=== PATIENT | female | born 1930 | race Caucasian/White ===

== ENCOUNTER 2017-07-18 14:48 | Observation (INO) | payer MEDICARE, BC ==
--- NOTE | 2017-07-18 15:00 | EDM.PDOC ---
ED HPI GENERAL MEDICAL PROBLEM - General Chief Complaint: Respiratory Problem Stated Complaint: FELL Time Seen by Provider: 07/18/17 15:00 Source of Information: Reports: Patient, Family, RN, RN Notes Reviewed History Limitations: Reports: No Limitations - History of Present Illness INITIAL COMMENTS - FREE TEXT/NARRATIVE: Arrives from home by POV with c/o of left chest wall/rib pain sustained today when pt tripping and struck a door knob with her chest. She was discharged from inpt. status from [facility] about a week ago where she was admitted for a COPD exacerbation. Pt reports feeling very weak since being home, and has been requiring a lot of assistance from her family. She is home supplemental oxygen dependent at 2.5L/min, but still feels short of breath. Admits to thick sputum production. Denies edema, fever, chills, N/V, or any other injury. 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 Treatments, Other Medication(s), Oxygen Left Lower Thoracic Pain Score (Numeric/FACES): 5 - Related Data Allergies Allergy/AdvReac Type Severity Reaction Status Date / Time No Known Allergies Allergy Verified 07/18/17 15:09 Home Meds: Home Meds Budesonide [Pulmicort] 2 ml INH ASDIRECTED 07/18/17 [History] DULoxetine [Cymbalta] 30 mg PO DAILY 07/18/17 [History] Formoterol [Perforomist] 2 ml INH ASDIRECTED 07/18/17 [History] amLODIPine Besylate [Amlodipine Besylate] 5 mg PO DAILY 07/18/17 [History] Past Medical History HEENT History: Reports: Impaired Vision Cardiovascular History: Reports: Hypertension Respiratory History: Reports: COPD, SOB, TB Gastrointestinal History: Reports: Hiatal Hernia Genitourinary History: Reports: UTI, Recurrent Musculoskeletal History: Reports: Back Pain, Chronic, Fracture (multiple ribs, T2 thoracic compression fracture), Osteoarthritis, Osteoporosis Psychiatric History: Reports: Anxiety, Depression Social & Family History - Family History Family Medical History: Noncontributory - Tobacco Use Smoking Status *Q: Former Smoker - Living Situation & Occupation Living situation: Reports: Alone Occupation: Retired ED ROS GENERAL - Review of Systems Review Of Systems: ROS reveals no pertinent complaints other than HPI. ED EXAM, GENERAL - Physical Exam Exam: See Below Exam Limited By: No Limitations General Appearance: Alert, Other (frail elderly female, uncomfortable but non- toxic appearing) Eye Exam: Bilateral Eye: Normal Inspection Ears: Normal External Exam, Hearing Grossly Normal Nose: Normal Inspection, Normal Mucosa, No Blood Throat/Mouth: Normal Inspection, Normal Lips, Normal Teeth, Normal Gums, Normal Oropharynx, Normal Voice, No Airway Compromise Head: Atraumatic, Normocephalic Neck: Normal Inspection, Supple, Non-Tender, Full Range of Motion. No: Lymphadenopathy (L), Lymphadenopathy (R) Respiratory/Chest: No Respiratory Distress, No Accessory Muscle Use, Decreased Breath Sounds, Crackles, Rhonchi (bibasilar), Wheezing, Splinting (at left chest ), Prolonged Expiration, Other (acutely tender to palpation at left lower anterior and lateral chest wall w/out alvaro crepitus, visible bruising or swelling, skin is intact) Cardiovascular: Regular Rate, Rhythm, No Edema, No JVD, No Murmur GI/Abdominal: Normal Bowel Sounds, Soft, Non-Tender, No Distention, Pelvis Stable. No: Guarding, Rigid, Rebound (Female) Exam: Deferred Rectal (Female) Exam: Deferred Back Exam: Other (chronically increased thoracic kyphosis). No: CVA Tenderness (L), CVA Tenderness (R) Extremities: Normal Inspection, Normal Range of Motion, Non-Tender, Normal Capillary Refill, No Pedal Edema Neurological: Alert, Oriented, CN II-XII Intact, Normal Cognition, No Motor/ Sensory Deficits, Other (generalized weakness) Psychiatric: Normal Mood Skin Exam: Warm, Dry, Intact, Normal Color, No Rash Course - Vital Signs Last Recorded V/S: Last Vital Signs Temp 37.1 C 07/18/17 15:04 Pulse 115 H 07/18/17 15:04 Resp 20 07/18/17 15:04 BP 132/73 07/18/17 15:04 Pulse Ox 94 L 07/18/17 15:04 - Orders/Labs/Meds Orders: Active Orders 24 hr Category Date Time Status Peripheral IV Care [RC] . DIRECTED Care 07/18/17 16:35 Active RT Aerosol Therapy [RC] ASDIRECTED Care 07/18/17 16:29 Active CULTURE BLOOD [BC] Stat Lab 07/18/17 16:35 Ordered CULTURE BLOOD [BC] Stat Lab 07/18/17 16:35 Ordered LACTIC ACID [CHEM] Stat Lab 07/18/17 16:35 Ordered UA W/MICROSCOPIC [URIN] Stat Lab 07/18/17 15:17 Ordered Sodium Chloride 0.9% [Normal Saline] 1,000 ml Med 07/18/17 16:45 Active IV ASDIRECTED Sodium Chloride 0.9% [Saline Flush] Med 07/18/17 16:35 Active 10 ml FLUSH ASDIRECTED PRN Blood Culture x2 Reflex Set [OM.PC] Stat Oth 07/18/17 16:35 Ordered Peripheral IV Insertion Adult [OM.PC] Stat Oth 07/18/17 16:35 Ordered Medication Orders Sodium Chloride (Normal Saline) 1,000 mls @ 250 mls/hr IV ASDIRECTED JESSICA Sodium Chloride (Saline Flush) 10 ml FLUSH ASDIRECTED PRN PRN Reason: Keep Vein Open Labs: Laboratory Tests 07/18/17 07/18/17 Range/Units 15:30 15:30 WBC 11.9 H (5.0-10.0) 10^3/uL RBC 3.41 L (4.2-5.4) 10^6/uL Hgb 11.3 L (12.0-16.0) g/dL Hct 32.3 L (37.0-47.0) % MCV 94.7 (80-100) fL MCH 33.1 (27.0-34.0) pg MCHC 35.0 (33.0-35.0) g/dL Plt Count 352 (150-450) 10^3/uL Neut % (Auto) (42.2-75.2) % Add Manual Diff Yes Neutrophils % (Manual) 84 H (42-75) % Band Neutrophils % 2 % Lymphocytes % (Manual) 10 L (20-50) % Monocytes % (Manual) 3 (2-8) % Eosinophils % (Manual) 1 (1-3) % Platelet Estimate Adequate Giant Platelets Few Sodium 134 L (135-145) mmol/L Potassium 3.5 L (3.6-5.0) mmol/L Chloride 100 L (101-111) mmol/L Carbon Dioxide 30.0 (21.0-31.0) mmol/L Anion Gap 7.5 BUN 14 (7-18) mg/dL Creatinine 0.7 (0.6-1.3) mg/dL Est Cr Clr Drug Dosing 45.63 mL/min Estimated GFR (MDRD) > 60 BUN/Creatinine Ratio 20.00 Glucose 144 H (74-105) mg/dL Calcium 8.5 (8.4-10.2) mg/dl Total Bilirubin 0.6 (0.2-1.0) mg/dL AST 16 (10-42) IU/L ALT 13 (10-60) IU/L Alkaline Phosphatase 62 (42-121) IU/L Total Protein 6.4 L (6.7-8.2) g/dl Albumin 2.9 L (3.2-5.5) g/dl Globulin 3.5 Albumin/Globulin Ratio 0.83 Meds: Medications Generic Name Dose Route Start Last Admin Trade Name Freq PRN Reason Stop Dose Admin Sodium Chloride 1,000 mls @ 250 mls/hr 07/18/17 16:45 Normal Saline IV ASDIRECTED JESSICA Sodium Chloride 10 ml 07/18/17 16:35 Saline Flush FLUSH ASDIRECTED PRN Keep Vein Open Discontinued Medications Generic Name Dose Route Start Last Admin Trade Name Freq PRN Reason Stop Dose Admin Acetaminophen/Codeine Phosphate 1 tab 07/18/17 16:36 Tylenol With Codeine No.3 300mg/30mg PO 07/18/17 16:37 ONETIME ONE Albuterol/Ipratropium 3 ml 07/18/17 16:28 Duoneb 3.0-0.5 Mg/3 Ml NEB 07/18/17 16:29 ONETIME ONE Ceftriaxone Sodium 1 gm 07/18/17 16:29 Rocephin IVPUSH 07/18/17 16:30 ONETIME ONE Methylprednisolone Sodium Succinate 80 mg 07/18/17 16:28 Solu-Medrol IVPUSH 07/18/17 16:29 ONETIME ONE - Radiology Interpretation Free Text/Narrative:: CT chest: Compression fracture T2. Kyphotic spine. 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 Cholelithiasis. No rib fractures, effusion or pneumothorax. See rad report. Departure - Departure Time of Disposition: 16:47 (admitted to Dr. Dalmi) Disposition: Refer to Observation Condition: Serious Clinical Impression: Acute exacerbation of COPD with asthma, Supplemental oxygen dependent, Atelectasis of both lungs, Generalized weakness Contusion of left chest wall Qualifiers: Encounter type: initial encounter Qualified Code(s): S20.212A - Contusion of left front wall of thorax, initial encounter - Discharge Information Forms: ED Department Discharge - My Orders Last 24 Hours: My Active Orders 07/18/17 15:17 UA W/MICROSCOPIC [URIN] Stat 07/18/17 16:29 RT Aerosol Therapy [RC] ASDIRECTED 07/18/17 16:35 Peripheral IV Care [RC] . DIRECTED CULTURE BLOOD [BC] Stat CULTURE BLOOD [BC] Stat LACTIC ACID [CHEM] Stat Sodium Chloride 0.9% [Saline Flush] 10 ml FLUSH ASDIRECTED PRN Blood Culture x2 Reflex Set [OM.PC] Stat Peripheral IV Insertion Adult [OM.PC] Stat 07/18/17 16:45 Sodium Chloride 0.9% [Normal Saline] 1,000 ml IV ASDIRECTED - Assessment/Plan Last 24 Hours: My Active Orders 07/18/17 15:17 UA W/MICROSCOPIC [URIN] Stat 07/18/17 16:29 RT Aerosol Therapy [RC] ASDIRECTED 07/18/17 16:35 Peripheral IV Care [RC] . DIRECTED CULTURE BLOOD [BC] Stat CULTURE BLOOD [BC] Stat LACTIC ACID [CHEM] Stat Sodium Chloride 0.9% [Saline Flush] 10 ml FLUSH ASDIRECTED PRN Blood Culture x2 Reflex Set [OM.PC] Stat Peripheral IV Insertion Adult [OM.PC] Stat 07/18/17 16:45 Sodium Chloride 0.9% [Normal Saline] 1,000 ml IV ASDIRECTED
[2017-07-18 15:56] LABS: CHLORIDE,CL 100 mmol/L (101-111); SODIUM,NA 134 mmol/L (135-145)
--- NOTE | 2017-07-18 16:02 | CT ---
Clinical history: 87-year-old hypertensive female with COPD who fell (slipped on linoleum) injuring l eft chest, anteriorly. Scan technique: Volume acquisition of data unenhanced CT scan of the chest bony thorax, lungs and med iastinum) obtained while the patient was lying supine on the Siemens multi slice CT scanner [place], [place]. All data archived in the PACS system for storage, reformattin g and study. Interpretation: Abnormal. 1. Greater than 50% compression fracture T2 vertebral body (age indeterminate without comparison film s immediately available). 2. Dorsal lumbar scoliosis and severe kyphosis of the thoracic spine with signs of chronic multilevel lower thoracic/upper lumbar disc disease and hypertrophic arthritis (spurs) at the thoracolumbar kirsty cture. No other fracture or dislocation dorsal spine. 3. Extensive bullous disease primarily affecting upper lungs bilaterally and asymmetric elevation lef t hemidiaphragm. 4. Bibasilar atelectasis. No lung mass, hilar lymphadenopathy or focal lobar pneumonia. 5. No left rib fractures, underlying lung contusion or signs of pneumothorax. 6. Normal cardiac silhouette (coronary artery calcifications without cephalization of vascular flow o r alveolar edema. Calcifications normal caliber ectatic thoracic aorta. No aneurysm or dissection. 7. Tiny gallstones but unenhanced liver, stomach, spleen, pancreas and adrenal glands unremarkable. CONCLUSION: Compression fracture T2. Kyphotic spine. Extensive bullous emphysematous disease of the l nick. Cholelithiasis. No rib fractures, effusion or pneumothorax.
[2017-07-18] MEDS ORDERED: methylPREDNISolone Sodium Succinate 125 MG/2 ML SDV IVPUSH ONE (16:28)
[2017-07-18] MEDS ORDERED: Albuterol/Ipratropium 3.0-0.5 MG/3 ML Neb Soln NEB ONE (16:28)
[2017-07-18] MEDS ORDERED: cefTRIAXone 1 GM Vial IVPUSH ONE (16:29)
[2017-07-18] MEDS ORDERED: Sodium Chloride 0.9% 10 ML Syringe FLUSH PRN ×2 (16:35→18:06)
[2017-07-18] MEDS ORDERED: Acetaminophen/Codeine 300-30 MG Tab PO ONE (16:36)
[2017-07-18] MEDS ORDERED: Sodium Chloride 0.9% 1,000 ML IV SCH (16:45)
[2017-07-18] MEDS ORDERED: Albuterol/Ipratropium 3.0-0.5 MG/3 ML Neb Soln NEB PRN (17:28)
[2017-07-18] MEDS ORDERED: Non-Formulary Medication 1 Each (Formoterol [Perforomist] 2 ML) INH SCH ×2 (17:30→21:00)
[2017-07-18] MEDS ORDERED: Zolpidem 5 MG Tab PO PRN (18:06)
--- NOTE | 2017-07-18 18:13 | PCM.HP ---
H&P History of Present Illness - General Date of Service: 07/18/17 Admit Problem/Dx: Admission Diagnosis/Problem Admission Diagnosis/Problem Chest pain Source of Information: Patient, Provider (er) - History of Present Illness Initial Comments - Free Text/Narative: The patient is an 87-year-old lady with a history of COPD, hypertension, depression with anxiety. Living at home independently. She was recently hospitalized and discharged on the beginning of June from [place] when she was treated for COPD. The patient was at home when she slipped on the linoleum and fell into a doorknob. She injured the left side of the chest. She is complaining of moderate to severe pain worse with touching, deep breath. The pain is sharp since the accident. She did not pass out she did not hit her head. She has a history of COPD and home oxygen dependent using about 2.5 L/m oxygen constantly. He has chronic shortness of breath which was not first lately. There was no fever or chills. No abdominal pain, no urinary burning. She came into the emergency room because of the pain since the accident. Left Lower Thoracic Pain Score (Numeric/FACES): 5 - Related Data Allergies/Adverse Reactions: Allergies Allergy/AdvReac Type Severity Reaction Status Date / Time No Known Allergies Allergy Verified 07/18/17 15:09 Home Medications: Home Meds Acetaminophen [Tylenol] 650 mg PO Q6H PRN 07/18/17 [History] Albuterol/Ipratropium [DuoNeb 3.0-0.5 MG/3 ML] 3 ml INH DAILY 07/18/17 [History] Budesonide [Pulmicort] 2 ml INH ASDIRECTED 07/18/17 [History] Cetirizine HCl [Zyrtec] 10 mg PO DAILY 07/18/17 [History] DULoxetine [Cymbalta] 30 mg PO DAILY 07/18/17 [History] Formoterol [Perforomist] 2 ml INH ASDIRECTED 07/18/17 [History] Lutein/Minerals/Vit A,C & E [Ocuvite] 1 tab PO DAILY 07/18/17 [History] amLODIPine Besylate [Amlodipine Besylate] 5 mg PO DAILY 07/18/17 [History] Past Medical History HEENT History: Reports: Impaired Vision Cardiovascular History: Reports: Hypertension Respiratory History: Reports: COPD, SOB, TB Gastrointestinal History: Reports: Hiatal Hernia Genitourinary History: Reports: UTI, Recurrent RN TRANSITION History: Reports: Musculoskeletal History: Reports: Back Pain, Chronic, Fracture (multiple ribs, T2 thoracic compression fracture), Osteoarthritis, Osteoporosis Psychiatric History: Reports: Anxiety, Depression Social & Family History - Family History Family Medical History: Noncontributory - Tobacco Use Smoking Status *Q: Former Smoker Used Tobacco, but Quit: Yes Month/Year Tobacco Last Used: ? Second Hand Smoke Exposure: No - Caffeine Use Caffeine Use: Reports: Coffee, Soda - Recreational Drug Use Recreational Drug Use: No - Living Situation & Occupation Living situation: Reports: Alone Occupation: Retired H&P Review of Systems - Review of Systems: Review Of Systems: See Below General: Denies: Fever, Chills Pulmonary: Reports: Shortness of Breath (Chronic). Denies: Wheezing, Hemoptysis Cardiovascular: Reports: Chest Pain (Left side since the accident) Gastrointestinal: Denies: Abdominal Pain Genitourinary: Denies: Dysuria Psychiatric: Denies: Confusion Exam - Exam Exam: See Below - Vital Signs Vital Signs: Last Vital Signs Temp 37.1 C 07/18/17 15:04 Pulse 115 H 07/18/17 15:04 Resp 20 07/18/17 15:04 BP 132/73 07/18/17 15:04 Pulse Ox 94 L 07/18/17 15:04 Weight: 53.705 kg - Exam Quality Assessment: Supplemental Oxygen General: Alert, Oriented Neck: Supple Lungs: Normal Respiratory Effort, Decreased Breath Sounds, Other (Reproducible pain with palpation of the left chest wall there is an area of bruise noted) Cardiovascular: Regular Rate, Regular Rhythm GI/Abdominal Exam: Normal Bowel Sounds, Soft, Non-Tender Extremities: No Pedal Edema Skin: Warm, Dry Neuro Extensive - Mental Status: Alert, Oriented x3 Psychiatric: Alert, Normal Affect - Patient Data Lab Results Last 24 hrs: Laboratory Results - last 24 hr 07/18/17 07/18/17 07/18/17 Range/Units 15:30 15:30 16:46 WBC 11.9 H (5.0-10.0) 10^3/uL RBC 3.41 L (4.2-5.4) 10^6/uL Hgb 11.3 L (12.0-16.0) g/dL Hct 32.3 L (37.0-47.0) % MCV 94.7 (80-100) fL MCH 33.1 (27.0-34.0) pg MCHC 35.0 (33.0-35.0) g/dL Plt Count 352 (150-450) 10^3/uL Neut % (Auto) (42.2-75.2) % Add Manual Diff Yes Neutrophils % (Manual) 84 H (42-75) % Band Neutrophils % 2 % Lymphocytes % (Manual) 10 L (20-50) % Monocytes % (Manual) 3 (2-8) % Eosinophils % (Manual) 1 (1-3) % Platelet Estimate Adequate Giant Platelets Few Sodium 134 L (135-145) mmol/L Potassium 3.5 L (3.6-5.0) mmol/L Chloride 100 L (101-111) mmol/L Carbon Dioxide 30.0 (21.0-31.0) mmol/L Anion Gap 7.5 BUN 14 (7-18) mg/dL Creatinine 0.7 (0.6-1.3) mg/dL Est Cr Clr Drug Dosing 45.63 mL/min Estimated GFR (MDRD) > 60 BUN/Creatinine Ratio 20.00 Glucose 144 H (74-105) mg/dL Lactic Acid 0.8 (0.5-2.2) mmol/L Calcium 8.5 (8.4-10.2) mg/dl Total Bilirubin 0.6 (0.2-1.0) mg/dL AST 16 (10-42) IU/L ALT 13 (10-60) IU/L Alkaline Phosphatase 62 (42-121) IU/L Total Protein 6.4 L (6.7-8.2) g/dl Albumin 2.9 L (3.2-5.5) g/dl Globulin 3.5 Albumin/Globulin Ratio 0.83 Result Diagrams: 07/18/17 15:30 07/18/17 15:30 Problem List Initiated/Reviewed/Updated: Yes Orders Last 24hrs: Active Orders 24 hr Category Date Time Status Patient Status [ADT] Routine ADT 07/18/17 18:06 Ordered Oxygen Therapy [RC] PRN Care 07/18/17 18:06 Ordered Peripheral IV Care [RC] . DIRECTED Care 07/18/17 16:35 Active RT Aerosol Therapy [RC] ASDIRECTED Care 07/18/17 16:29 Active RT Aerosol Therapy [RC] ASDIRECTED Care 07/18/17 17:28 Ordered Up With Assistance [RC] ASDIRECTED Care 07/18/17 18:06 Ordered VTE/DVT Education [RC] PER UNIT ROUTINE Care 07/18/17 18:06 Ordered Vital Signs [RC] Q4H Care 07/18/17 18:06 Ordered Regular Diet [DIET] Diet 07/18/17 Breakfast Ordered COMPREHENSIVE METABOLIC PN,CMP [CHEM] AM Lab 07/19/17 05:11 Ordered CULTURE BLOOD [BC] Stat Lab 07/18/17 16:46 Received CULTURE BLOOD [BC] Stat Lab 07/18/17 16:50 Received UA W/MICROSCOPIC [URIN] Stat Lab 07/18/17 15:17 Ordered Acetaminophen [Tylenol] Med 07/18/17 17:26 Ordered 650 mg PO Q4H PRN Acetaminophen [Tylenol] Med 07/18/17 21:00 Ordered 650 mg PO TID Albuterol/Ipratropium [DuoNeb 3.0-0.5 MG/3 ML] Med 07/18/17 17:28 Ordered 3 ml NEB Q4HRRT PRN Budesonide [Pulmicort] Med 07/18/17 17:30 Ordered 0.5 mg INH ASDIRECTED Calcium Carbonate/Vitamin D3 [Calcium Carbonate/Vitamin Med 07/19/17 09:00 Ordered D 1250 MG-200 Unit] 1 tab PO DAILY Check Patch Med 07/19/17 17:30 Active 1 ea TRDERM DAILY@1730 DULoxetine [Cymbalta] Med 07/19/17 09:00 Ordered 60 mg PO DAILY Formoterol [Perforomist] Med 07/18/17 17:30 Ordered 2 ml INH ASDIRECTED Heparin Sodium Med 07/18/17 22:00 Ordered 5,000 units SUBCUT Q8HR Lidocaine 5% [Lidoderm 5%] Med 07/18/17 17:30 Ordered 700 mg TOP Q24H Multivitamins,Therapeutic [Thera] Med 07/19/17 08:00 Ordered 1 each PO WITHBREAKFAST Sodium Chloride 0.9% [Saline Flush] Med 07/18/17 16:35 Active 10 ml FLUSH ASDIRECTED PRN Sodium Chloride 0.9% [Saline Flush] Med 07/18/17 18:06 Ordered 10 ml FLUSH ASDIRECTED PRN Zolpidem [Ambien] Med 07/18/17 18:06 Ordered 5 mg PO BEDTIME PRN amLODIPine [Norvasc] Med 07/19/17 09:00 Ordered 5 mg PO DAILY Antiembolic Hose [OM.PC] Per Unit Routine Oth 07/18/17 18:07 Ordered Blood Culture x2 Reflex Set [OM.PC] Stat Oth 07/18/17 16:35 Ordered Peripheral IV Insertion Adult [OM.PC] Stat Oth 07/18/17 16:35 Ordered Saline Lock Insert [OM.PC] Routine Oth 07/18/17 18:06 Ordered Resuscitation Status Routine Resus Stat 07/18/17 18:06 Ordered Medication Orders Acetaminophen (Tylenol) 650 mg PO Q4H PRN PRN Reason: Pain Acetaminophen (Tylenol) 650 mg PO TID JESSICA Albuterol/Ipratropium (Duoneb 3.0-0.5 Mg/3 Ml) 3 ml NEB Q4HRRT PRN PRN Reason: sob Amlodipine Besylate (Norvasc) 5 mg PO DAILY JESSICA Budesonide (Pulmicort) 0.5 mg INH ASDIRECTED JESSICA Calcium Carbonate (Calcium Carbonate/Vitamin D 1250 Mg-200 Unit) 1 tab PO DAILY JESSICA Heparin Sodium (Porcine) (Heparin Sodium) 5,000 units SUBCUT Q8HR JESSICA Lidocaine (Lidoderm 5%) 700 mg TOP Q24H [facility] Miscellaneous Information (Check Patch) 1 ea TRDERM DAILY@1730 [facility] Multivitamins (Thera) 1 each PO WITHBREAKFAST [facility] Non-Formulary Medication (Duloxetine [Cymbalta]) 60 mg PO DAILY [facility] Non-Formulary Medication (Formoterol [Perforomist]) 2 ml INH ASDIRECTED JESSICA Sodium Chloride (Saline Flush) 10 ml FLUSH ASDIRECTED PRN PRN Reason: Keep Vein Open Sodium Chloride (Saline Flush) 10 ml FLUSH ASDIRECTED PRN PRN Reason: Keep Vein Open Zolpidem Tartrate (Ambien) 5 mg PO BEDTIME PRN PRN Reason: Sleep Assessment/Plan Comment:: 87 -year-old lady with a history of COPD, home oxygen dependent, hypertension. Presented with an injury that is causing chest wall pain. The pain is pleuritic versus with deep breath. #1 pain control The patient is home oxygen dependent history of COPD she is at risk for developing pneumonia or atelectasis with pain with breathing. Will start the patient on scheduled Tylenol, add Lidoderm patch. #2 chronic COPD with chronic hypoxemic respiratory failure I do not think that the patient has significant acute exacerbation I would continue the patient on Pulmicort and Perforomist Use DuoNeb as needed #3 mild leukocytosis This might be stress, pain related. She was on steroids recently as well. Will check a UA. The patient received steroid in the emergency room. I will not recheck this CBC in the morning with the steroid boost the white blood cell count will likely be higher but not clinically significant. #4 hypertension Treat with Norvasc #5 DVT prophylaxis will be with subcutaneous heparin
[2017-07-18] MEDS: Lidocaine 5% 700 MG Patch TOP SCH (18:43)
[2017-07-18] MEDS: Azithromycin 500 MG in Sodium Chloride 0.9% 250 ML IV SCH (19:16)
[2017-07-18] MEDS: Heparin Sodium 5,000 Units/ML Vial SUBCUT SCH (21:36)
[2017-07-18] MEDS: Budesonide 0.5 MG/2 ML Neb Susp INH SCH (21:36)
[2017-07-18] MEDS: Acetaminophen 325 MG Tab PO SCH (21:36)
[2017-07-19] MEDS: Heparin Sodium 5,000 Units/ML Vial SUBCUT SCH ×3 (06:05→21:09)
[2017-07-19] MEDS: Acetaminophen 325 MG Tab PO PRN (06:10)
[2017-07-19 07:02] LABS: CHLORIDE,CL 101 mmol/L (101-111); SODIUM,NA 137 mmol/L (135-145)
[2017-07-19] MEDS: amLODIPine 5 MG Tab PO SCH (08:41)
[2017-07-19] MEDS: Budesonide 0.5 MG/2 ML Neb Susp INH SCH ×2 (08:41→18:52)
[2017-07-19] MEDS: Calcium Carbonate/Vitamin D3 1250 MG-200 Unit Tab PO SCH (08:41)
[2017-07-19] MEDS: Acetaminophen 325 MG Tab PO SCH ×3 (08:41→21:08)
[2017-07-19] MEDS: Multivitamins,Therapeutic Tab PO SCH (08:41)
[2017-07-19] MEDS: DULoxetine 30 MG Cap PO SCH (08:41)
--- NOTE | 2017-07-19 11:50 | PCM.PN ---
- General Info Date of Service: 07/19/17 Admission Dx/Problem (Free Text): Admission Diagnosis/Problem Admission Diagnosis/Problem Chest pain Functional Status: Reports: Pain Controlled - Review of Systems General: Denies: Fever Pulmonary: Denies: Shortness of Breath Cardiovascular: Reports: Chest Pain (Patient feels it is reasonably controlled but still present, worse with movements) Gastrointestinal: Denies: Abdominal Pain Genitourinary: Denies: Dysuria Neurological: Denies: Confusion - Patient Data Vitals - Most Recent: Last Vital Signs Temp 36.9 C 07/19/17 07:10 Pulse 103 H 07/19/17 07:10 Resp 20 07/19/17 07:10 BP 130/76 07/19/17 08:41 Pulse Ox 95 07/19/17 07:10 Weight - Most Recent: 53.705 kg I&O - Last 24 Hours: Intake & Output 07/18/17 07/19/17 07/19/17 22:59 06:59 14:59 Intake Total 300 100 200 Output Total 350 250 300 Balance -50 -150 -100 Lab Results Last 24 Hours: Laboratory Results - last 24 hr 07/18/17 07/18/17 07/18/17 Range/Units 15:30 15:30 16:46 WBC 11.9 H (5.0-10.0) 10^3/uL RBC 3.41 L (4.2-5.4) 10^6/uL Hgb 11.3 L (12.0-16.0) g/dL Hct 32.3 L (37.0-47.0) % MCV 94.7 (80-100) fL MCH 33.1 (27.0-34.0) pg MCHC 35.0 (33.0-35.0) g/dL Plt Count 352 (150-450) 10^3/uL Neut % (Auto) (42.2-75.2) % Add Manual Diff Yes Neutrophils % (Manual) 84 H (42-75) % Band Neutrophils % 2 % Lymphocytes % (Manual) 10 L (20-50) % Monocytes % (Manual) 3 (2-8) % Eosinophils % (Manual) 1 (1-3) % Platelet Estimate Adequate Giant Platelets Few Sodium 134 L (135-145) mmol/L Potassium 3.5 L (3.6-5.0) mmol/L Chloride 100 L (101-111) mmol/L Carbon Dioxide 30.0 (21.0-31.0) mmol/L Anion Gap 7.5 BUN 14 (7-18) mg/dL Creatinine 0.7 (0.6-1.3) mg/dL Est Cr Clr Drug Dosing 45.63 mL/min Estimated GFR (MDRD) > 60 BUN/Creatinine Ratio 20.00 Glucose 144 H (74-105) mg/dL Lactic Acid 0.8 (0.5-2.2) mmol/L Calcium 8.5 (8.4-10.2) mg/dl Total Bilirubin 0.6 (0.2-1.0) mg/dL AST 16 (10-42) IU/L ALT 13 (10-60) IU/L Alkaline Phosphatase 62 (42-121) IU/L Total Protein 6.4 L (6.7-8.2) g/dl Albumin 2.9 L (3.2-5.5) g/dl Globulin 3.5 Albumin/Globulin Ratio 0.83 Urine Color (YELLOW) Urine Appearance (CLEAR) Urine pH (5.0-9.0) Ur Specific [place] (1.005-1.030) Urine Protein (NEGATIVE) Urine Glucose (UA) (NEGATIVE) Urine Ketones (NEGATIVE) Urine Occult Blood (NEGATIVE) Urine Nitrite (NEGATIVE) Urine Bilirubin (NEGATIVE) Urine Urobilinogen (0.2-1.0) mg/dL Ur Leukocyte Esterase (NEGATIVE) Urine RBC /HPF Urine WBC (0-5/HPF) /HPF Ur Epithelial Cells /HPF Urine Bacteria (0-FEW/HPF) /HPF 07/18/17 07/19/17 Range/Units 17:30 06:12 WBC (5.0-10.0) 10^3/uL RBC (4.2-5.4) 10^6/uL Hgb (12.0-16.0) g/dL Hct (37.0-47.0) % MCV (80-100) fL MCH (27.0-34.0) pg MCHC (33.0-35.0) g/dL Plt Count (150-450) 10^3/uL Neut % (Auto) (42.2-75.2) % Add Manual Diff Neutrophils % (Manual) (42-75) % Band Neutrophils % % Lymphocytes % (Manual) (20-50) % Monocytes % (Manual) (2-8) % Eosinophils % (Manual) (1-3) % Platelet Estimate Giant Platelets Sodium 137 (135-145) mmol/L Potassium 3.9 (3.6-5.0) mmol/L Chloride 101 (101-111) mmol/L Carbon Dioxide 28.0 (21.0-31.0) mmol/L Anion Gap 11.9 BUN 22 H (7-18) mg/dL Creatinine 0.7 (0.6-1.3) mg/dL Est Cr Clr Drug Dosing 45.63 mL/min Estimated GFR (MDRD) > 60 BUN/Creatinine Ratio 31.42 Glucose 216 H (74-105) mg/dL Lactic Acid (0.5-2.2) mmol/L Calcium 8.6 (8.4-10.2) mg/dl Total Bilirubin 0.6 (0.2-1.0) mg/dL AST 17 (10-42) IU/L ALT 14 (10-60) IU/L Alkaline Phosphatase 60 (42-121) IU/L Total Protein 6.2 L (6.7-8.2) g/dl Albumin 2.8 L (3.2-5.5) g/dl Globulin 3.4 Albumin/Globulin Ratio 0.82 Urine Color Yellow (YELLOW) Urine Appearance Clear (CLEAR) Urine pH 7.0 (5.0-9.0) Ur Specific [place] 1.015 (1.005-1.030) Urine Protein Negative (NEGATIVE) Urine Glucose (UA) Negative (NEGATIVE) Urine Ketones Negative (NEGATIVE) Urine Occult Blood Trace-intact H (NEGATIVE) Urine Nitrite Negative (NEGATIVE) Urine Bilirubin Negative (NEGATIVE) Urine Urobilinogen 0.2 (0.2-1.0) mg/dL Ur Leukocyte Esterase Negative (NEGATIVE) Urine RBC 0-5 /HPF Urine WBC 0-5 (0-5/HPF) /HPF Ur Epithelial Cells Few /HPF Urine Bacteria Rare (0-FEW/HPF) /HPF Med Orders - Current: Current Medications Acetaminophen (Tylenol) 650 mg PO Q4H PRN PRN Reason: Pain Last Admin: 07/19/17 06:10 Dose: 650 mg Acetaminophen (Tylenol) 650 mg PO TID JESSICA Last Admin: 07/19/17 08:41 Dose: 650 mg Albuterol/Ipratropium (Duoneb 3.0-0.5 Mg/3 Ml) 3 ml NEB Q4HRRT PRN PRN Reason: sob Amlodipine Besylate (Norvasc) 5 mg PO DAILY [facility] Last Admin: 07/19/17 08:41 Dose: 5 mg Budesonide (Pulmicort) 0.5 mg INH BIDRT [facility] Last Admin: 07/19/17 08:41 Dose: 0.5 mg Calcium Carbonate (Calcium Carbonate/Vitamin D 1250 Mg-200 Unit) 1 tab PO DAILY [facility] Last Admin: 07/19/17 08:41 Dose: 1 tab Ceftriaxone Sodium (Rocephin) 1 gm IVPUSH Q24H [facility] Duloxetine HCl (Cymbalta) 30 mg PO DAILY [facility] Last Admin: 07/19/17 08:41 Dose: 30 mg Heparin Sodium (Porcine) (Heparin Sodium) 5,000 units SUBCUT Q8HR [facility] Last Admin: 07/19/17 06:05 Dose: 5,000 units Azithromycin 500 mg/ Sodium (Chloride) 250 mls @ 250 mls/hr IV Q24H [facility] Last Admin: 07/18/17 19:16 Dose: 250 mls/hr Lidocaine (Lidoderm 5%) 700 mg TOP Q24H [facility] Last Admin: 07/18/17 18:43 Dose: 700 mg Miscellaneous Information (Check Patch) 1 ea TRDERM DAILY@1730 [facility] Multivitamins (Thera) 1 each PO WITHBREAKFAST [facility] Last Admin: 07/19/17 08:41 Dose: 1 each Sodium Chloride (Saline Flush) 10 ml FLUSH ASDIRECTED PRN PRN Reason: Keep Vein Open Sodium Chloride (Saline Flush) 10 ml FLUSH ASDIRECTED PRN PRN Reason: Keep Vein Open Zolpidem Tartrate (Ambien) 5 mg PO BEDTIME PRN PRN Reason: Sleep Discontinued Medications Acetaminophen/Codeine Phosphate (Tylenol With Codeine No.3 300mg/30mg) 1 tab PO ONETIME ONE Stop: 07/18/17 16:37 Last Admin: 07/18/17 16:56 Dose: 1 tab Albuterol/Ipratropium (Duoneb 3.0-0.5 Mg/3 Ml) 3 ml NEB ONETIME ONE Stop: 07/18/17 16:29 Last Admin: 07/18/17 16:51 Dose: 3 ml Ceftriaxone Sodium (Rocephin) 1 gm IVPUSH ONETIME ONE Stop: 07/18/17 16:30 Last Admin: 07/18/17 16:47 Dose: 1 gm Sodium Chloride (Normal Saline) 1,000 mls @ 250 mls/hr IV ASDIRECTED JESSICA Last Admin: 07/18/17 16:47 Dose: 250 mls/hr Methylprednisolone Sodium Succinate (Solu-Medrol) 80 mg IVPUSH ONETIME ONE Stop: 07/18/17 16:29 Last Admin: 07/18/17 16:50 Dose: 80 mg Non-Formulary Medication (Formoterol [Perforomist]) 2 ml INH ASDIRECTED JESSICA Non-Formulary Medication (Formoterol [Perforomist]) 2 ml INH BID JESSICA - Exam Quality Assessment: Supplemental Oxygen General: Alert, Oriented Neck: Supple Lungs: Normal Respiratory Effort, Decreased Breath Sounds Cardiovascular: Regular Rate, Regular Rhythm GI/Abdominal Exam: Normal Bowel Sounds, Soft, Non-Tender Extremities: No Pedal Edema Skin: Warm, Dry, Other (Left lower rib cage area of tenderness, mild swelling) Neurological: No New Focal Deficit Psy/Mental Status: Alert, Normal Affect, Normal Mood - Problem List Review Problem List Initiated/Reviewed/Updated: Yes - My Orders Last 24 Hours: My Active Orders 07/18/17 17:26 Acetaminophen [Tylenol] 650 mg PO Q4H PRN 07/18/17 17:28 RT Aerosol Therapy [RC] 07,18 Albuterol/Ipratropium [DuoNeb 3.0-0.5 MG/3 ML] 3 ml NEB Q4HRRT PRN 07/18/17 17:30 Lidocaine 5% [Lidoderm 5%] 700 mg TOP Q24H 07/18/17 18:00 Azithromycin [Zithromax] 500 mg Sodium Chloride 0.9% [Normal Saline] 250 ml IV Q24H 07/18/17 18:06 Patient Status [ADT] Routine Oxygen Therapy [RC] .PRN Up With Assistance [RC] ASDIRECTED VTE/DVT Education [RC] 08,20 Vital Signs [RC] Q4H Sodium Chloride 0.9% [Saline Flush] 10 ml FLUSH ASDIRECTED PRN Zolpidem [Ambien] 5 mg PO BEDTIME PRN Saline Lock Insert [OM.PC] Routine Resuscitation Status Routine 07/18/17 18:07 Antiembolic Hose [OM.PC] Per Unit Routine 07/18/17 18:40 OT Evaluation and Treatment [CONS] Routine PT Evaluation and Treatment [CONS] Routine 07/18/17 21:00 Acetaminophen [Tylenol] 650 mg PO TID Budesonide [Pulmicort] 0.5 mg INH BIDRT 07/18/17 22:00 Heparin Sodium 5,000 units SUBCUT Q8HR 07/19/17 08:00 Multivitamins,Therapeutic [Thera] 1 each PO WITHBREAKFAST 07/19/17 09:00 Calcium Carbonate/Vitamin D3 [Calcium Carbonate/Vitamin D 1250 MG-200 Unit] 1 tab PO DAILY DULoxetine [Cymbalta] 30 mg PO DAILY amLODIPine [Norvasc] 5 mg PO DAILY 07/19/17 16:00 cefTRIAXone [Rocephin] 1 gm IVPUSH Q24H 07/19/17 17:30 Check Patch 1 ea TRDERM DAILY@2850 - Plan Plan:: 87 -year-old lady with a history of COPD, home oxygen dependent, hypertension. Presented with an injury that is causing chest wall pain. The pain is pleuritic and comes with deep breath. #1 pain control The patient is home oxygen dependent history of COPD she is at risk for developing pneumonia or atelectasis with pain with breathing. Started the patient on scheduled Tylenol, add Lidoderm patch. She feels the pain is reasonably controlled. 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 She was on steroids recently as well. Will check a UA. The patient received steroid in the emergency room. I will not recheck this CBC in the morning with the steroid boost the white blood cell count will likely be higher but not clinically significant. The patient's family did think that she is coughing more, has more secretions. Started azithromycin, ceftriaxone empirically. #4 hypertension Treat with Norvasc #5 DVT prophylaxis will be with subcutaneous heparin #6 discharge planning Family feels that the patient is not safe at home alone. They cannot provide 24/ 7 care to the patient. Discussed this with the patient. She is quite insistent that she would like to go home to try to live alone. Will have physical, occupational therapy evaluation today. We'll swallow evaluation as there was concern from family of more coughing with eating.
[2017-07-19] MEDS: PERFOROMIST 20 MCG/2 ML INH SCH ×2 (14:02→19:24)
[2017-07-19] MEDS ORDERED: cefTRIAXone 1 GM in Sodium Chloride 0.9% 50 ML IV SCH (16:00)
[2017-07-19] MEDS ORDERED: cefTRIAXone 1 GM Vial IVPUSH SCH (16:00)
[2017-07-19] MEDS: Lidocaine 5% 700 MG Patch TOP SCH (17:29)
[2017-07-19] MEDS ORDERED: [UNRECOGNIZED DRUG - OTHER] TRDERM SCH (17:30)
[2017-07-19] MEDS: Azithromycin 500 MG in Sodium Chloride 0.9% 250 ML IV SCH (17:30)
[2017-07-20] MEDS: Acetaminophen 325 MG Tab PO PRN (03:38)
[2017-07-20] MEDS: Heparin Sodium 5,000 Units/ML Vial SUBCUT SCH (05:54)
[2017-07-20] MEDS: Budesonide 0.5 MG/2 ML Neb Susp INH SCH (07:45)
[2017-07-20] MEDS: PERFOROMIST 20 MCG/2 ML INH SCH (07:45)
[2017-07-20] MEDS: Multivitamins,Therapeutic Tab PO SCH (09:58)
[2017-07-20] MEDS: amLODIPine 5 MG Tab PO SCH (09:59)
[2017-07-20] MEDS: Acetaminophen 325 MG Tab PO SCH (09:59)
[2017-07-20] MEDS: Calcium Carbonate/Vitamin D3 1250 MG-200 Unit Tab PO SCH (09:59)
[2017-07-20] MEDS: DULoxetine 30 MG Cap PO SCH (09:59)
--- NOTE | 2017-07-20 10:26 | PCM.DCSUM1 ---
Discharge Summary - Discharge Data Discharge Date: 07/20/17 Discharge Disposition: DC/Tfer to SNF 03 Condition: Good - Discharge Diagnosis/Problem(s) (1) Acute exacerbation of COPD with asthma SNOMED Code(s): 3387096056764 ICD Code: J44.1 - CHRONIC OBSTRUCTIVE PULMONARY DISEASE W (ACUTE) EXACERBATION; J45.901 - UNSPECIFIED ASTHMA WITH (ACUTE) EXACERBATION Status: Acute Priority: High (2) Atelectasis of both lungs SNOMED Code(s): 10967904 ICD Code: J98.11 - ATELECTASIS Status: Acute (3) Contusion of left chest wall SNOMED Code(s): 10544434 ICD Code: S20.212A - CONTUSION OF LEFT FRONT WALL OF THORAX, INITIAL ENCOUNTER Status: Acute Qualifiers: Encounter type: initial encounter Qualified Code(s): S20.212A - Contusion of left front wall of thorax, initial encounter (4) Generalized weakness SNOMED Code(s): 79901814 ICD Code: R53.1 - WEAKNESS Status: Acute (5) Supplemental oxygen dependent SNOMED Code(s): 067758984133 ICD Code: Z99.81 - DEPENDENCE ON SUPPLEMENTAL OXYGEN Status: Acute - Patient Summary/Data Consults: Consultations 07/18/17 18:40 OT Evaluation and Treatment [CONS] Routine PT Evaluation and Treatment [CONS] Routine - Patient Instructions Diet: Heart Healthy Diet, Regular Diet as Tolerated Fluid Restriction: 1500 mL Activity: As Tolerated Showering/Bathing: May Shower Notify Provider of: Fever, Increased Pain, Swelling and Redness, Nausea and/or Vomiting - Discharge Plan Prescriptions/Med Rec: Check Patch 1 ea TRDERM DAILY@1730 30 Days #30 each Lidocaine 5% [Lidoderm 5%] 700 mg TOP Q24H 30 Days #30 patch Zolpidem [Ambien] 5 mg PO BEDTIME PRN #20 tablet PRN Reason: Sleep Home Medications: Home Meds Acetaminophen [Tylenol] 650 mg PO Q6H PRN 07/18/17 [History] Albuterol/Ipratropium [DuoNeb 3.0-0.5 MG/3 ML] 3 ml INH DAILY 07/18/17 [History] Budesonide [Pulmicort] 2 ml INH BID 07/18/17 [History] Cetirizine HCl [Zyrtec] 10 mg PO DAILY 07/18/17 [History] DULoxetine [Cymbalta] 30 mg PO DAILY 07/18/17 [History] Formoterol [Perforomist] 2 ml INH BID 07/18/17 [History] Lutein/Minerals/Vit A,C & E [Ocuvite] 1 tab PO DAILY 07/18/17 [History] amLODIPine Besylate [Amlodipine Besylate] 5 mg PO DAILY 07/18/17 [History] Acetaminophen [Tylenol] 650 mg PO Q4H PRN tablet 07/20/17 [Rx] Acetaminophen [Tylenol] 650 mg PO TID tablet 07/20/17 [Rx] Albuterol/Ipratropium [DuoNeb 3.0-0.5 MG/3 ML] 3 ml NEB Q4HRRT PRN neb [Rx] Calcium Carbonate/Vitamin D3 [Calcium Carbonate/Vitamin D 1250 MG-200 Unit] 1 tab PO DAILY tablet 07/20/17 [Rx] Check Patch 1 ea TRDERM DAILY@1730 30 Days #30 each 07/20/17 [Rx] Lidocaine 5% [Lidoderm 5%] 700 mg TOP Q24H 30 Days #30 patch 07/20/17 [Rx] Zolpidem [Ambien] 5 mg PO BEDTIME PRN #20 tablet 07/20/17 [Rx] Forms: ED Department Discharge Referrals: Joshua Wilhelm MD [Primary Care Provider] - - Discharge Summary/Plan Comment DC Time >30 min.: Yes - General Info Admission Dx/Problem (Free Text: Admission Diagnosis/Problem Admission Diagnosis/Problem Chest pain Functional Status: Reports: Pain Controlled - Review of Systems General: Reports: No Symptoms HEENT: Reports: No Symptoms Pulmonary: Reports: No Symptoms Cardiovascular: Reports: No Symptoms Gastrointestinal: Reports: No Symptoms Genitourinary: Reports: No Symptoms Musculoskeletal: Reports: No Symptoms Skin: Reports: No Symptoms Neurological: Reports: No Symptoms Psychiatric: Reports: No Symptoms - Patient Data Vitals - Most Recent: Last Vital Signs Temp 97.5 F 07/20/17 08:00 Pulse 93 07/20/17 08:00 Resp 20 07/20/17 08:00 BP 167/81 H 07/20/17 09:59 Pulse Ox 97 07/20/17 08:00 Weight - Most Recent: 118 lb 6.4 oz I&O - Last 24 hours: Intake & Output 07/19/17 07/20/17 07/20/17 22:59 06:59 14:59 Intake Total 500 Output Total 400 Balance 100 [facility]YSTAL Results - Last 24 hrs: Microbiology 07/18/17 16:50 Aerobic Blood Culture - Preliminary Blood - Venous - Lab Draw NO GROWTH AFTER 1 DAY Anaerobic Blood Culture - Preliminary NO GROWTH AFTER 1 DAY 07/18/17 16:46 Aerobic Blood Culture - Preliminary Blood - Venous NO GROWTH AFTER 1 DAY Anaerobic Blood Culture - Preliminary NO GROWTH AFTER 1 DAY Med Orders - Current: Current Medications Acetaminophen (Tylenol) 650 mg PO Q4H PRN PRN Reason: Pain Last Admin: 07/20/17 03:38 Dose: 650 mg Acetaminophen (Tylenol) 650 mg PO TID [facility] Last Admin: 07/20/17 09:59 Dose: 650 mg Albuterol/Ipratropium (Duoneb 3.0-0.5 Mg/3 Ml) 3 ml NEB Q4HRRT PRN PRN Reason: sob Amlodipine Besylate (Norvasc) 5 mg PO DAILY [facility] Last Admin: 07/20/17 09:59 Dose: 5 mg Budesonide (Pulmicort) 0.5 mg INH BIDRT [facility] Last Admin: 07/20/17 07:45 Dose: 0.5 mg Calcium Carbonate (Calcium Carbonate/Vitamin D 1250 Mg-200 Unit) 1 tab PO DAILY [facility] Last Admin: 07/20/17 09:59 Dose: 1 tab Ceftriaxone Sodium (Rocephin) 1 gm IVPUSH Q24H [facility] Last Admin: 07/19/17 17:29 Dose: 1 gm Duloxetine HCl (Cymbalta) 30 mg PO DAILY [facility] Last Admin: 07/20/17 09:59 Dose: 30 mg Heparin Sodium (Porcine) (Heparin Sodium) 5,000 units SUBCUT Q8HR [facility] Last Admin: 07/20/17 05:54 Dose: 5,000 units Azithromycin 500 mg/ Sodium (Chloride) 250 mls @ 250 mls/hr IV Q24H [facility] Last Admin: 07/19/17 17:30 Dose: 250 mls/hr Lidocaine (Lidoderm 5%) 700 mg TOP Q24H [facility] Last Admin: 07/19/17 17:29 Dose: 700 mg Miscellaneous Information (Check Patch) 1 ea TRDERM DAILY@1730 [facility] Last Admin: 07/19/17 17:30 Dose: 1 ea Multivitamins (Thera) 1 each PO WITHBREAKFAST [facility] Last Admin: 07/20/17 09:58 Dose: 1 each Perforomist 20mcg/ (2ml Pt's Own Med) 0 each INH BIDRT [facility] Last Admin: 07/20/17 07:45 Dose: 1 each Sodium Chloride (Saline Flush) 10 ml FLUSH ASDIRECTED PRN PRN Reason: Keep Vein Open Sodium Chloride (Saline Flush) 10 ml FLUSH ASDIRECTED PRN PRN Reason: Keep Vein Open Zolpidem Tartrate (Ambien) 5 mg PO BEDTIME PRN PRN Reason: Sleep Discontinued Medications Acetaminophen/Codeine Phosphate (Tylenol With Codeine No.3 300mg/30mg) 1 tab PO ONETIME ONE Stop: 07/18/17 16:37 Last Admin: 07/18/17 16:56 Dose: 1 tab Albuterol/Ipratropium (Duoneb 3.0-0.5 Mg/3 Ml) 3 ml NEB ONETIME ONE Stop: 07/18/17 16:29 Last Admin: 07/18/17 16:51 Dose: 3 ml Ceftriaxone Sodium (Rocephin) 1 gm IVPUSH ONETIME ONE Stop: 07/18/17 16:30 Last Admin: 07/18/17 16:47 Dose: 1 gm Sodium Chloride (Normal Saline) 1,000 mls @ 250 mls/hr IV ASDIRECTED [facility] Last Admin: 07/18/17 16:47 Dose: 250 mls/hr Methylprednisolone Sodium Succinate (Solu-Medrol) 80 mg IVPUSH ONETIME ONE Stop: 07/18/17 16:29 Last Admin: 07/18/17 16:50 Dose: 80 mg Non-Formulary Medication (Formoterol [Perforomist]) 2 ml INH ASDIRECTED [facility] Non-Formulary Medication (Formoterol [Perforomist]) 2 ml INH BID [facility] - Exam Quality Assessment: Reports: Supplemental Oxygen General: Reports: Alert, Oriented HEENT: Reports: Pupils Equal, Pupils Reactive, EOMI, Mucous Membr. Moist/[place] Neck: Reports: Supple Lungs: Reports: Clear to Auscultation, Normal Respiratory Effort Cardiovascular: Reports: Regular Rate, Regular Rhythm GI/Abdominal Exam: Normal Bowel Sounds, Soft, Non-Tender, No Organomegaly, No Distention, No Abnormal Bruit, No Mass, Pelvis Stable (Female) Exam: Normal External Exam, Normal Speculum Exam, Normal Bimanual Exam Rectal (Female) Exam: Normal Exam, Normal Rectal Tone Back Exam: Reports: Normal Inspection, Full Range of Motion Extremities: Normal Inspection, Normal Range of Motion, Non-Tender, No Pedal Edema, Normal Capillary Refill Skin: Reports: Warm, Dry, Intact Wound/Incisions: Reports: Healing Well Neurological: Reports: No New Focal Deficit Psy/Mental Status: Reports: Alert, Normal Affect, Normal Mood
== END 2017-07-20 11:40 ==
LOC: DL.ED 14:48 → DL.MS 17:09 → UNDOADMOB 17:09 → DL.MS 18:06
PROVIDERS: ADMIT Internal Medicine; ATTEND Internal Medicine
DX: J44.1 Chronic obstructive pulmonary disease with (acute) exacerbation (principal); J45.901 Unspecified asthma with (acute) exacerbation; S20.212A Contusion of left front wall of thorax, initial encounter; J98.11 Atelectasis; R53.1 Weakness; F41.8 Other specified anxiety disorders; I10 Essential (primary) hypertension; Z99.81 Dependence on supplemental oxygen; Z79.899 Other long term (current) drug therapy; Z87.891 Personal history of nicotine dependence; W01.0XXA Fall on same level from slipping, tripping and stumbling without subsequent striking against object, initial encounter; Y92.009 Unspecified place in unspecified non-institutional (private) residence as the place of occurrence of the external cause
CPT/HCPCS: 36415; 71250; 80053; 81001; 83605; 85025; 87040; 94640; 96365; 96366; 96372; 96375; 96376; 97162; 97165; 99284; 99285; A9270; G0378; J0456; J0696; J1644; J2930; J7030; J7050; 96374

== ENCOUNTER 2017-08-06 16:51 | Inpatient (IN) | payer MEDICARE, BC ==
[2017-08-06] MEDS ORDERED: Albuterol/Ipratropium 3.0-0.5 MG/3 ML Neb Soln NEB ONE (17:02)
--- NOTE | 2017-08-06 17:10 | EDM.PDOC ---
ED HPI GENERAL MEDICAL PROBLEM - General Chief Complaint: Respiratory Problem Stated Complaint: BY AMBULANCE Time Seen by Provider: 08/06/17 16:52 Source of Information: Reports: Patient, EMS, EMS Notes Reviewed, RN, RN Notes Reviewed History Limitations: Reports: No Limitations - History of Present Illness INITIAL COMMENTS - FREE TEXT/NARRATIVE: Patient presents to emergency room per [facility] with complaint of shortness of breath. Patient complains of left sided rib pain under left breast. States she bumped ribs while going to the bathroom a few days ago. Patient states history of COPD but no cardiac history. Patient denies fever or chills. Patient resides at [facility]. Onset: Gradual Duration: Getting Worse Location: Reports: Chest Quality: Reports: Ache Severity: Moderate Improves with: Reports: None Worsens with: Reports: None Associated Symptoms: Reports: No Other Symptoms Left Chest Pain Score (Numeric/FACES): 4 - Related Data Allergies Allergy/AdvReac Type Severity Reaction Status Date / Time No Known Allergies Allergy Verified 07/18/17 15:09 Home Meds: Home Meds Acetaminophen [Tylenol] 650 mg PO Q6H PRN 07/18/17 [History] Albuterol/Ipratropium [DuoNeb 3.0-0.5 MG/3 ML] 3 ml INH DAILY 07/18/17 [History] Budesonide [Pulmicort] 2 ml INH BID 07/18/17 [History] Cetirizine HCl [Zyrtec] 10 mg PO DAILY 07/18/17 [History] DULoxetine [Cymbalta] 30 mg PO DAILY 07/18/17 [History] Formoterol [Perforomist] 2 ml INH BID 07/18/17 [History] Lutein/Minerals/Vit A,C & E [Ocuvite] 1 tab PO DAILY 07/18/17 [History] amLODIPine Besylate [Amlodipine Besylate] 5 mg PO DAILY 07/18/17 [History] Acetaminophen [Tylenol] 650 mg PO Q4H PRN tablet 07/20/17 [Rx] Acetaminophen [Tylenol] 650 mg PO TID tablet 07/20/17 [Rx] Albuterol/Ipratropium [DuoNeb 3.0-0.5 MG/3 ML] 3 ml NEB Q4HRRT PRN neb [Rx] Calcium Carbonate/Vitamin D3 [Calcium Carbonate/Vitamin D 1250 MG-200 Unit] 1 tab PO DAILY tablet 07/20/17 [Rx] Check Patch 1 ea TRDERM DAILY@1730 30 Days #30 each 07/20/17 [Rx] Lidocaine 5% [Lidoderm 5%] 700 mg TOP Q24H 30 Days #30 patch 07/20/17 [Rx] Zolpidem [Ambien] 5 mg PO BEDTIME PRN #20 tablet 07/20/17 [Rx] Past Medical History HEENT History: Reports: Impaired Vision Other HEENT History: Detatched retina Cardiovascular History: Reports: Hypertension Respiratory History: Reports: COPD, SOB, TB Gastrointestinal History: Reports: Hiatal Hernia Genitourinary History: Reports: UTI, Recurrent Other Genitourinary History: Stress incontinence 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: Musculoskeletal History: Reports: Back Pain, Chronic, Fracture (multiple ribs, T2 thoracic compression fracture), Osteoarthritis, Osteoporosis Other Musculoskeletal History: ribs, compression fracture Psychiatric History: Reports: Anxiety, Depression - Past Surgical History HEENT Surgical History: Reports: Adenoidectomy, Cataract Surgery, Tonsillectomy Cardiovascular Surgical History: Reports: None Respiratory Surgical History: Reports: Thoracentesis GI Surgical History: Reports: Appendectomy, Other (See Below) Other GI Surgeries/Procedures: Surgery for bowel obstruction Female Surgical History: Reports: Hysterectomy, Salpingo-Oophorectomy Musculoskeletal Surgical History: Reports: None Social & Family History - Family History Family Medical History: Noncontributory - Tobacco Use Smoking Status *Q: Former Smoker Used Tobacco, but Quit: Yes Month/Year Tobacco Last Used: ? Second Hand Smoke Exposure: No - Caffeine Use Caffeine Use: Reports: Coffee, Soda - Recreational Drug Use Recreational Drug Use: No - Living Situation & Occupation Living situation: Reports: Alone Occupation: Retired ED ROS GENERAL - Review of Systems Review Of Systems: ROS reveals no pertinent complaints other than HPI. ED EXAM, GENERAL - Physical Exam Exam: See Below Exam Limited By: No Limitations General Appearance: Thin Eye Exam: Bilateral Eye: Normal Inspection (wearing glasses) Ears: Normal External Exam, Normal Canal, Hearing Grossly Normal, Normal TMs Nose: Normal Inspection, Normal Mucosa, No Blood Throat/Mouth: Normal Inspection, Normal Lips, Normal Teeth, Normal Gums, Normal Oropharynx, Normal Voice, No Airway Compromise Head: Atraumatic, Normocephalic Neck: Normal Inspection, Supple, Non-Tender, Full Range of Motion Respiratory/Chest: Other (decreased lung sounds) Cardiovascular: Tachycardia GI/Abdominal: Normal Bowel Sounds, Soft, Non-Tender, No Organomegaly, No Distention, No Abnormal Bruit, No Mass (Female) Exam: Deferred Rectal (Female) Exam: Deferred Back Exam: Full Range of Motion Extremities: Normal Range of Motion Neurological: Alert, Oriented, CN II-XII Intact, Normal Cognition, Normal Gait, Normal Reflexes, No Motor/Sensory Deficits Skin Exam: Warm, Dry, Intact, Normal Color, No Rash Lymphatic: No Adenopathy EKG INTERPRETATION EKG Date: 08/06/17 Time: 17:08 Rate (Beats/Min): 113 EKG Interpretation Comments: EKG on 08/06/17 showed sinus tachycardia. Multiple premature complexes, ventricular and supraventricular. Low voltage in frontal leads. Nonspecific T abnormalities, lateral leads. Course - Vital Signs Last Recorded V/S: Last Vital Signs Temp 100.6 F 08/06/17 18:05 Pulse 124 H 08/06/17 18:05 Resp 33 H 08/06/17 18:05 BP 152/67 H 08/06/17 18:05 Pulse Ox 94 L 08/06/17 18:05 - Orders/Labs/Meds Orders: Active Orders 24 hr Category Date Time Status EKG Documentation Completion [RC] STAT Care 08/06/17 17:01 Active Peripheral IV Care [RC] . DIRECTED Care 08/06/17 17:02 Active RT Aerosol Therapy [RC] ASDIRECTED Care 08/06/17 17:02 Active Sodium Chloride 0.9% [Saline Flush] Med 08/06/17 17:01 Active 10 ml FLUSH ASDIRECTED PRN Peripheral IV Insertion Adult [OM.PC] Stat Oth 08/06/17 17:01 Ordered Medication Orders Sodium Chloride (Saline Flush) 10 ml FLUSH ASDIRECTED PRN PRN Reason: Keep Vein Open Last Admin: 08/06/17 18:03 Dose: 10 ml Labs: Laboratory Tests 08/06/17 08/06/17 Range/Units 17:25 17:25 WBC 17.3 H (5.0-10.0) 10^3/uL RBC 3.47 L (4.2-5.4) 10^6/uL Hgb 10.9 L (12.0-16.0) g/dL Hct 31.3 L (37.0-47.0) % MCV 90.2 D (80-100) fL MCH 31.4 (27.0-34.0) pg MCHC 34.8 (33.0-35.0) g/dL Plt Count 365 (150-450) 10^3/uL Neut % (Auto) 80.5 H (42.2-75.2) % Lymph % (Auto) 6.0 L (20.5-50.1) % Quay % (Auto) 12.8 H (2-8) % Eos % (Auto) 0.2 L (1.0-3.0) % Baso % (Auto) 0.5 (0.0-1.0) % Neutrophils % (Manual) 67 (42-75) % Band Neutrophils % 10 % Lymphocytes % (Manual) 13 L (20-50) % Monocytes % (Manual) 7 (2-8) % Eosinophils % (Manual) 1 (1-3) % Metamyelocytes % 2 Sodium 136 (135-145) mmol/L Potassium 3.4 L (3.6-5.0) mmol/L Chloride 97 L (101-111) mmol/L Carbon Dioxide 29.0 (21.0-31.0) mmol/L Anion Gap 13.4 BUN 23 H (7-18) mg/dL Creatinine 0.7 (0.6-1.3) mg/dL Est Cr Clr Drug Dosing 49.57 mL/min Estimated GFR (MDRD) > 60 BUN/Creatinine Ratio 32.85 Glucose 158 H (74-105) mg/dL Calcium 8.9 (8.4-10.2) mg/dl Total Bilirubin 1.2 H (0.2-1.0) mg/dL AST 19 (10-42) IU/L ALT 15 (10-60) IU/L Alkaline Phosphatase 97 (42-121) IU/L Troponin I 0.02 (0.00-0.02) ng/ml B-Natriuretic Peptide 583 H (0-100) pg/ml Total Protein 6.7 (6.7-8.2) g/dl Albumin 2.8 L (3.2-5.5) g/dl Globulin 3.9 Albumin/Globulin Ratio 0.72 Meds: Medications Generic Name Dose Route Start Last Admin Trade Name Freq PRN Reason Stop Dose Admin Sodium Chloride 10 ml 08/06/17 17:01 08/06/17 18:03 Saline Flush FLUSH 10 ml ASDIRECTED PRN Administration Keep Vein Open Discontinued Medications Generic Name Dose Route Start Last Admin Trade Name Freq PRN Reason Stop Dose Admin Albuterol/Ipratropium 3 ml 08/06/17 17:02 08/06/17 17:12 Duoneb 3.0-0.5 Mg/3 Ml NEB 08/06/17 17:03 3 ml ONETIME ONE Administration - Radiology Interpretation Free Text/Narrative:: Portable Chest xray: IMPRESSION: 1. Elevation of the left hemidiaphragm with left pleural effusion. 2. Atelectasis noted within both lung bases. Thank you for allowing us to participate in the care of your patient. Dictated and Authenticated by: Moe Adler DO See rad report - Re-Assessments/Exams Free Text/Narrative Re-Assessment/Exam: 08/06/17 18:29 Discussed the patient case with Dr. Alvarez who agreed to accept the patient as an inpatient. Departure - Departure Time of Disposition: 18:27 Disposition: Admitted As Inpatient 67 Condition: Poor Clinical Impression: Acute exacerbation of chronic obstructive airways disease Congestive heart failure Qualifiers: Heart failure type: other Qualified Code(s): I50.9 - Heart failure, unspecified - Discharge Information Referrals: Tigre Kelly MD [Primary Care Provider] - Forms: ED Department Discharge - My Orders Last 24 Hours: My Active Orders 08/06/17 17:01 EKG Documentation Completion [RC] STAT Sodium Chloride 0.9% [Saline Flush] 10 ml FLUSH ASDIRECTED PRN Peripheral IV Insertion Adult [OM.PC] Stat 08/06/17 17:02 Peripheral IV Care [RC] . DIRECTED RT Aerosol Therapy [RC] ASDIRECTED - Assessment/Plan Last 24 Hours: My Active Orders 08/06/17 17:01 EKG Documentation Completion [RC] STAT Sodium Chloride 0.9% [Saline Flush] 10 ml FLUSH ASDIRECTED PRN Peripheral IV Insertion Adult [OM.PC] Stat 08/06/17 17:02 Peripheral IV Care [RC] . DIRECTED RT Aerosol Therapy [RC] ASDIRECTED
[2017-08-06 17:57] LABS: CHLORIDE,CL 97 mmol/L (101-111); SODIUM,NA 136 mmol/L (135-145)
[2017-08-06] MEDS: Sodium Chloride 0.9% 10 ML Syringe FLUSH PRN (18:03)
[2017-08-06] MEDS ORDERED: Acetaminophen 325 MG Tab PO ONE (18:49)
[2017-08-06] MEDS ORDERED: Ipratropium 0.02% 0.5 MG/2.5 ML Neb Soln NEB PRN (19:45)
[2017-08-06] MEDS ORDERED: Acetaminophen 325 MG Tab PO PRN (19:50)
[2017-08-06] MEDS ORDERED: Potassium Chloride 10 MEQ Tab.ER PO ONE (19:58)
[2017-08-06] MEDS ORDERED: Sodium Chloride 0.9% 10 ML Syringe FLUSH PRN (20:10)
[2017-08-06] MEDS ORDERED: Ondansetron 4 MG Tab.DIS PO PRN (20:10)
--- NOTE | 2017-08-06 20:17 | PCM.HP ---
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 She has a history of anxiety, hypertension. The patient was recently hospitalized after a fall and left rib cage trauma. Subsequently discharged to residential. She did well for a few days but then a few days prior to this admission she was noted to have increasing cough, low-grade temperature, increasing shortness of breath, tachycardia. She was brought into the emergency room. Family is concerned that she is chronically anxious and that is driving her shortness of breath worse. She has a history of anxiety and has been on medication but they were hoping to get more narcotics to help with the work of breathing. There is no apparent chest pain other than the traumatic event, no complains of palpitation, no operative pain, no diarrhea. No significant leg swelling lately. Left Chest Pain Score (Numeric/FACES): 4 - Related Data Allergies/Adverse Reactions: Allergies Allergy/AdvReac Type Severity Reaction Status Date / Time No Known Allergies Allergy Verified 07/18/17 15:09 Home Medications: Home Meds Budesonide [Pulmicort] 2 inh INH BID 07/18/17 [History] Cetirizine HCl [Zyrtec] 10 mg PO DAILY 07/18/17 [History] DULoxetine [Cymbalta] 30 mg PO DAILY 07/18/17 [History] Formoterol [Perforomist] 2 inh INH BID 07/18/17 [History] Lutein/Minerals/Vit A,C & E [Ocuvite] 1 tab PO DAILY 07/18/17 [History] amLODIPine Besylate [Amlodipine Besylate] 5 mg PO DAILY 07/18/17 [History] Acetaminophen [Tylenol] 650 mg PO Q4H PRN tablet 07/20/17 [Rx] Acetaminophen [Tylenol] 650 mg PO TID tablet 07/20/17 [Rx] Albuterol/Ipratropium [DuoNeb 3.0-0.5 MG/3 ML] 3 ml NEB Q4HRRT PRN neb [Rx] Check Patch 1 ea TRDERM DAILY@1730 30 Days #30 each 07/20/17 [Rx] Lidocaine 5% [Lidoderm 5%] 700 mg TOP Q24H 30 Days #30 patch 07/20/17 [Rx] Zolpidem [Ambien] 5 mg PO BEDTIME PRN #20 tablet 07/20/17 [Rx] Cyclobenzaprine [Flexeril] 25 mg PO Q8HR PRN 08/06/17 [History] guaiFENesin [Robitussin] 200 mg PO Q4HR PRN 08/06/17 [History] Past Medical History HEENT History: Reports: Impaired Vision Other HEENT History: Detatched retina Cardiovascular History: Reports: Hypertension Respiratory History: Reports: COPD, SOB, TB Gastrointestinal History: Reports: Hiatal Hernia Genitourinary History: Reports: UTI, Recurrent Other Genitourinary History: Stress incontinence [employer] History: Reports: Musculoskeletal History: Reports: Back Pain, Chronic, Fracture (multiple ribs, T2 thoracic compression fracture), Osteoarthritis, Osteoporosis Other Musculoskeletal History: ribs, compression fracture Psychiatric History: Reports: Anxiety, Depression - Past Surgical History HEENT Surgical History: Reports: Adenoidectomy, Cataract Surgery, Tonsillectomy Cardiovascular Surgical History: Reports: None Respiratory Surgical History: Reports: Thoracentesis GI Surgical History: Reports: Appendectomy, Other (See Below) Other GI Surgeries/Procedures: Surgery for bowel obstruction Female Surgical History: Reports: Hysterectomy, Salpingo-Oophorectomy Musculoskeletal Surgical History: Reports: None Social & Family History - Family History Family Medical History: Noncontributory - Tobacco Use Smoking Status *Q: Former Smoker Years of Tobacco use: 42 Packs/Tins Daily: 2 Used Tobacco, but Quit: Yes Month/Year Tobacco Last Used: ? Second Hand Smoke Exposure: No - Caffeine Use Caffeine Use: Reports: Coffee, Soda - Recreational Drug Use Recreational Drug Use: No - Living Situation & Occupation Living situation: Reports: Alone Occupation: Retired H&P Review of Systems - Review of Systems: Review Of Systems: See Below General: Reports: Fever, Weakness Pulmonary: Reports: Shortness of Breath, Cough, Sputum. Denies: Wheezing, Hemoptysis Cardiovascular: Reports: Chest Pain (Since the fall). Denies: Palpitations, Edema Gastrointestinal: Denies: Abdominal Pain Skin: Denies: Bruising, Rash Psychiatric: Reports: Anxiety. Denies: Confusion Neurological: Denies: Confusion, Syncope Exam - Exam Exam: See Below - Vital Signs Vital Signs: Last Vital Signs Temp 38.6 C H 08/06/17 18:56 Pulse 133 H 08/06/17 18:56 Resp 30 H 08/06/17 18:56 BP 178/74 H 08/06/17 18:56 Pulse Ox 93 L 08/06/17 18:56 Weight: 54.431 kg - Exam Quality Assessment: Supplemental Oxygen General: Alert, Oriented HEENT: EOMI Neck: Supple Lungs: Decreased Breath Sounds, Rhonchi. No: Wheezing Cardiovascular: Regular Rate, Regular Rhythm GI/Abdominal Exam: Normal Bowel Sounds, Soft, Non-Tender Extremities: No Pedal Edema Skin: Warm, Dry Neuro Extensive - Mental Status: Alert, Oriented x3, Normal Mood/Affect Psychiatric: Alert, Normal Affect, Normal Mood - Patient Data Lab Results Last 24 hrs: Laboratory Results - last 24 hr 08/06/17 08/06/17 Range/Units 17:25 17:25 WBC 17.3 H (5.0-10.0) 10^3/uL RBC 3.47 L (4.2-5.4) 10^6/uL Hgb 10.9 L (12.0-16.0) g/dL Hct 31.3 L (37.0-47.0) % MCV 90.2 D (80-100) fL MCH 31.4 (27.0-34.0) pg MCHC 34.8 (33.0-35.0) g/dL Plt Count 365 (150-450) 10^3/uL Neut % (Auto) 80.5 H (42.2-75.2) % Lymph % (Auto) 6.0 L (20.5-50.1) % [place] % (Auto) 12.8 H (2-8) % Eos % (Auto) 0.2 L (1.0-3.0) % Baso % (Auto) 0.5 (0.0-1.0) % Neutrophils % (Manual) 67 (42-75) % Band Neutrophils % 10 % Lymphocytes % (Manual) 13 L (20-50) % Monocytes % (Manual) 7 (2-8) % Eosinophils % (Manual) 1 (1-3) % Metamyelocytes % 2 Sodium 136 (135-145) mmol/L Potassium 3.4 L (3.6-5.0) mmol/L Chloride 97 L (101-111) mmol/L Carbon Dioxide 29.0 (21.0-31.0) mmol/L Anion Gap 13.4 BUN 23 H (7-18) mg/dL Creatinine 0.7 (0.6-1.3) mg/dL Est Cr Clr Drug Dosing 49.57 mL/min Estimated GFR (MDRD) > 60 BUN/Creatinine Ratio 32.85 Glucose 158 H (74-105) mg/dL Calcium 8.9 (8.4-10.2) mg/dl Total Bilirubin 1.2 H (0.2-1.0) mg/dL AST 19 (10-42) IU/L ALT 15 (10-60) IU/L Alkaline Phosphatase 97 (42-121) IU/L Troponin I 0.02 (0.00-0.02) ng/ml B-Natriuretic Peptide 583 H (0-100) pg/ml Total Protein 6.7 (6.7-8.2) g/dl Albumin 2.8 L (3.2-5.5) g/dl Globulin 3.9 Albumin/Globulin Ratio 0.72 Result Diagrams: 08/06/17 17:25 08/06/17 17:25 EKG INTERPRETATION EKG Date: 08/06/17 EKG Interpretation Comments: EKG per my reading shows sinus tachycardia with frequent PACs, PVCs on monitor Problem List Initiated/Reviewed/Updated: Yes Orders Last 24hrs: Active Orders 24 hr Category Date Time Status Patient Status [ADT] Routine ADT 08/06/17 20:10 Ordered Glucose [Blood Glucose Check, Bedside] [RC] QIDACANDBED Care 08/06/17 19:48 Active Oxygen Therapy [RC] PRN Care 08/06/17 20:10 Ordered RT Aerosol Therapy [RC] ASDIRECTED Care 08/06/17 19:44 Active RT Post Treatment Assessment [RC] Click to Edit Care 08/06/17 19:45 Active RT Pre-Treatment Assessment [RC] Click to Edit Care 08/06/17 19:45 Active Telemetry Monitoring [Cardiac Monitoring] [RC] . Care 08/06/17 19:46 Active DIRECTED Up With Assistance [RC] ASDIRECTED Care 08/06/17 20:10 Ordered VTE/DVT Education [RC] PER UNIT ROUTINE Care 08/06/17 20:10 Ordered Vital Signs [RC] Q4H Care 08/06/17 20:10 Ordered OT Evaluation and Treatment [CONS] Routine Cons 08/06/17 20:10 Ordered PT Evaluation and Treatment [CONS] Routine Cons 08/06/17 20:10 Ordered Regular Diet [DIET] Diet 08/06/17 Breakfast Ordered BASIC METABOLIC PANEL,BMP [CHEM] AM Lab 08/07/17 05:15 Ordered CBC WITH AUTO DIFF [HEME] AM Lab 08/07/17 05:15 Ordered CULTURE BLOOD [BC] Stat Lab 08/06/17 19:41 Ordered CULTURE BLOOD [BC] Stat Lab 08/06/17 19:41 Ordered CULTURE SPUTUM + SMEAR [RM] Routine Lab 08/06/17 19:41 Ordered LACTIC ACID [CHEM] Q4H Lab 08/06/17 19:50 Ordered LACTIC ACID [CHEM] Q4H Lab 08/06/17 23:50 Ordered LACTIC ACID [CHEM] Q4H Lab 08/07/17 03:50 Ordered VANCOMYCIN TROUGH [CHEM] Timed Lab 08/10/17 19:30 Ordered Acetaminophen [Tylenol] Med 08/06/17 19:50 Ordered 650 mg PO Q6H PRN Albuterol/Ipratropium [DuoNeb 3.0-0.5 MG/3 ML] Med 08/06/17 23:00 Ordered 3 ml NEB Q8HRRT Budesonide [Pulmicort] Med 08/07/17 07:00 Ordered 0.5 mg NEB BIDRT Calcium Carbonate/Vitamin D3 [Calcium Carbonate/Vitamin Med 08/07/17 09:00 Ordered D 1250 MG-200 Unit] 1 tab PO DAILY Cetirizine HCl [Zyrtec] Med 08/07/17 09:00 Ordered 10 mg PO DAILY DULoxetine [Cymbalta] Med 08/07/17 09:00 Ordered 30 mg PO DAILY Furosemide [Lasix] Med 08/06/17 21:00 Ordered 20 mg IVPUSH BID Heparin Sodium Med 08/06/17 22:00 Ordered 5,000 units SUBCUT Q8HR Insulin Aspart [NovoLOG] Med 08/07/17 08:00 Ordered See Protocol SUBCUT TIDAC Ipratropium [Atrovent] Med 08/06/17 19:45 Ordered 0.5 mg NEB .Q4H PRN Levofloxacin/Dextrose 5%-Water [Levaquin in D5W 750 MG/ Med 08/06/17 20:00 Active 150 ML] 750 mg Premix Bag 1 bag IV Q24H Lidocaine 5% [Lidoderm 5%] Med 08/06/17 20:00 Ordered 700 mg TOP Q24H Lutein/Minerals/Vit A,C & E [I-[place]] Med 08/07/17 09:00 Ordered DOSE each PO DAILY Morphine [Morphine 10 MG/0.5 ML Oral Syringe] Med 08/06/17 21:00 Ordered 2.5 mg SL TID Ondansetron [Zofran ODT] Med 08/06/17 20:10 Ordered 4 mg PO Q6H PRN Potassium Chloride [Klor-Con 10] Med 08/07/17 08:00 Ordered 20 meq PO WITHBREAKFAST Sodium Chloride 0.9% [Saline Flush] Med 08/06/17 17:01 Active 10 ml FLUSH ASDIRECTED PRN Sodium Chloride 0.9% [Saline Flush] Med 08/06/17 20:10 Ordered 10 ml FLUSH ASDIRECTED PRN Vancomycin 0.75 gm Med 08/06/17 20:00 Active Sodium Chloride 0.9% [Normal Saline] 250 ml IV Q24H Vancomycin Pharmacy to Dose [Pharmacy to Dose - Med 08/06/17 19:45 Ordered Vancomycin] 1 dose .XX ASDIRECTED Zolpidem [Ambien] Med 08/06/17 19:50 Ordered 5 mg PO BEDTIME PRN amLODIPine [Norvasc] Med 08/07/17 09:00 Ordered 5 mg PO DAILY methylPREDNISolone Sod Succ [Solu-MEDROL] Med 08/06/17 19:45 Ordered 40 mg IVPUSH Q8H Antiembolic Hose [OM.PC] Per Unit Routine Oth 08/06/17 20:11 Ordered Blood Culture x2 Reflex Set [OM.PC] Stat Oth 08/06/17 19:41 Ordered Peripheral IV Insertion Adult [OM.PC] Stat Oth 08/06/17 17:01 Ordered Saline Lock Insert [OM.PC] Routine Oth 08/06/17 20:10 Ordered Resuscitation Status Routine Resus Stat 08/06/17 20:10 Ordered Medication Orders Acetaminophen (Tylenol) 650 mg PO Q6H PRN PRN Reason: Pain Albuterol/Ipratropium (Duoneb 3.0-0.5 Mg/3 Ml) 3 ml NEB Q8HRRT [facility] Amlodipine Besylate (Norvasc) 5 mg PO DAILY [facility] Budesonide (Pulmicort) 0.5 mg NEB BIDRT [facility] Calcium Carbonate (Calcium Carbonate/Vitamin D 1250 Mg-200 Unit) 1 tab PO DAILY [facility] Duloxetine HCl (Cymbalta) 30 mg PO DAILY [facility] Furosemide (Lasix) 20 mg IVPUSH BID [facility] Heparin Sodium (Porcine) (Heparin Sodium) 5,000 units SUBCUT Q8HR [facility] Levofloxacin/Dextrose 750 mg/ (Premix) 150 mls @ 100 mls/hr IV Q24H [facility] Vancomycin HCl 0.75 gm/ Sodium (Chloride) 250 mls @ 166.667 mls/hr IV Q24H [facility] Insulin Aspart (Novolog) 0 unit SUBCUT TIDAC [facility]; Protocol Ipratropium [place] (Atrovent) 0.5 mg NEB .Q4H PRN PRN Reason: sob Lidocaine (Lidoderm 5%) 700 mg TOP Q24H [facility] Methylprednisolone Sodium Succinate (Solu-Medrol) 40 mg IVPUSH Q8H [facility] Morphine Sulfate (Morphine 10 Mg/0.5 Ml Oral Syringe) 2.5 mg SL TID [facility] Multivitamins/Minerals (I-[place]) each PO DAILY [facility] Non-Formulary Medication (Cetirizine Hcl [Zyrtec]) 10 mg PO DAILY [facility] Ondansetron HCl (Zofran Odt) 4 mg PO Q6H PRN PRN Reason: nausea, able to take PO Potassium Chloride (Klor-Con 10) 20 meq PO WITHBREAKFAST [facility] Sodium Chloride (Saline Flush) 10 ml FLUSH ASDIRECTED PRN PRN Reason: Keep Vein Open Last Admin: 08/06/17 18:03 Dose: 10 ml Sodium Chloride (Saline Flush) 10 ml FLUSH ASDIRECTED PRN PRN Reason: Keep Vein Open Vancomycin HCl (Pharmacy To Dose - Vancomycin) 1 dose .XX ASDIRECTED [facility] Zolpidem Tartrate (Ambien) 5 mg PO BEDTIME PRN PRN Reason: Sleep Assessment/Plan Comment:: The patient is a 87-year-old lady with a history of severe COPD, 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 She has a history of anxiety, hypertension. The patient was recently hospitalized after a fall and left rib cage trauma. Subsequently discharged to residential. She did well for a few days but then a few days prior to this admission she was noted to have increasing cough, low-grade temperature, increasing shortness of breath, tachycardia. She was brought into the emergency room. Family is concerned that she is chronically anxious and that is driving her shortness of breath worse. She has a history of anxiety and has been on medication but they were hoping to get more narcotics to help with the work of breathing. There is no apparent chest pain other than the traumatic event, no complains of palpitation, no operative pain, no diarrhea. No significant leg swelling lately. #1 acute on chronic hypoxemic respiratory failure This is likely secondary to a combination of severe COPD with exacerbation, elevated left hemidiaphragm, possible small left effusion, possible bronchitis or pneumonia. Well supplement oxygen as needed #2 acute COPD exacerbation Will use Pulmicort, scheduled DuoNeb, Atrovent as needed. Well use low-dose morphine to help with dyspnea Hold formoterol while on scheduled DuoNeb Start Solu-Medrol and taper it #3 possible pneumonia, bronchitis There is leukocytosis, low-grade temperature. The patient is from a residential, concern for gram-negative organisms, healthcare related to infection. Well obtain sputum culture, blood cultures. Started the patient on levofloxacin and vancomycin. #4 possible sepsis Presented with tachycardia, leukocytosis, recent low-grade fever, Concern for respiratory infection Obtain lactic acid levels Treat the infection, COPD #5 tachycardia At this point the patient is in sinus rhythm This is likely due to the respiratory status. Well monitor on telemetry. Improve respiratory status. For now hold off on rate control agents unless becoming more tachycardic. #6 small left-sided effusion There is no significant lower extremity edema, BNP is elevated but at the age of 87 that is somewhat expected. An acute CHF might have contributed to the shortness of breath I will start diuretics. Replace potassium now for hypokalemia and will follow daily. #7 anxiety Will continue Cymbalta. Use low-dose morphine for helping with respiratory status. #8 recent fall with left sided chest wall trauma Will use Lidoderm patch, Tylenol, low-dose morphine. #9 hyperglycemia noted No history of diabetes Will follow blood sugars and use supplemental insulin #10 post status was discussed with the patient and family. Patient elected full CODE STATUS. We will have PT and OT worked with the patient to maintain strength
[2017-08-06] MEDS: Levofloxacin/Dextrose 5%-Water 750 MG in Premix Bag 1 BAG IV SCH (20:39)
[2017-08-06] MEDS: Morphine 10 MG/0.5 ML Oral Syringe SL SCH (20:40)
[2017-08-06] MEDS: Furosemide 20 MG/2 ML VIAL IVPUSH SCH (20:42)
[2017-08-06] MEDS: methylPREDNISolone Sodium Succinate 40 MG/1 ML SDV IVPUSH SCH (20:42)
[2017-08-06] MEDS: Heparin Sodium 5,000 Units/ML Vial SUBCUT SCH (22:23)
[2017-08-06] MEDS: Albuterol/Ipratropium 3.0-0.5 MG/3 ML Neb Soln NEB SCH (22:24)
[2017-08-06] MEDS: Zolpidem 5 MG Tab PO PRN (22:24)
[2017-08-07] MEDS: methylPREDNISolone Sodium Succinate 40 MG/1 ML SDV IVPUSH SCH ×3 (03:54→20:26)
[2017-08-07 04:19] LABS: CHLORIDE,CL 100 mmol/L (101-111); SODIUM,NA 137 mmol/L (135-145)
[2017-08-07] MEDS: Heparin Sodium 5,000 Units/ML Vial SUBCUT SCH ×3 (05:47→22:50)
[2017-08-07] MEDS ORDERED: Lidocaine 5% 700 MG Patch TOP SCH (07:30)
[2017-08-07] MEDS: Albuterol/Ipratropium 3.0-0.5 MG/3 ML Neb Soln NEB SCH ×3 (07:40→23:39)
[2017-08-07] MEDS: Budesonide 0.5 MG/2 ML Neb Susp NEB SCH ×2 (07:45→18:57)
[2017-08-07] MEDS ORDERED: Calcium Carbonate/Vitamin D3 1250 MG-200 Unit Tab PO SCH (09:00)
[2017-08-07] MEDS: Insulin Aspart 100 Units/ML 3 ML Pen SUBCUT SCH ×3 (09:43→17:24)
[2017-08-07] MEDS: Potassium Chloride 10 MEQ Tab.ER PO SCH (09:44)
[2017-08-07] MEDS: Lutein/Minerals/Vit A,C & E Tab PO SCH (09:45)
[2017-08-07] MEDS: DULoxetine 30 MG Cap PO SCH (09:46)
[2017-08-07] MEDS: amLODIPine 5 MG Tab PO SCH (09:46)
[2017-08-07] MEDS: Furosemide 20 MG/2 ML VIAL IVPUSH SCH ×2 (09:50→22:07)
[2017-08-07] MEDS: Morphine 10 MG/0.5 ML Oral Syringe SL SCH ×3 (09:51→22:46)
--- NOTE | 2017-08-07 12:43 | PCM.PN ---
- General Info Date of Service: 08/07/17 Admission Dx/Problem (Free Text): Admission Diagnosis/Problem Admission Diagnosis/Problem Shortness of breath Subjective Update: She is feeling better, able to ambulate from the bathroom to the chair. Still short of breath especially with activity. She had low oxygen saturation on room air. Family is concerned about dysphasia. This was a concern in the past but she did not tolerate the thickened diet. She still has cough and productive yellow sputum. No chills. Tachycardia during the night improved the. No significant arrhythmia other than PACs PVCs on telemetry. No associated chest pain. Functional Status: Reports: Ambulating - Review of Systems General: Reports: Weakness, Fatigue. Denies: Fever Pulmonary: Reports: Shortness of Breath, Cough, Sputum. Denies: Hemoptysis Cardiovascular: Denies: Chest Pain Gastrointestinal: Denies: Abdominal Pain Neurological: Denies: Confusion Psychiatric: Denies: Depression - Patient Data Vitals - Most Recent: Last Vital Signs Temp 36.4 C 08/07/17 11:36 Pulse 117 H 08/07/17 11:36 Resp 18 08/07/17 11:36 BP 152/76 H 08/07/17 11:36 Pulse Ox 94 L 08/07/17 11:36 Weight - Most Recent: 52.707 kg I&O - Last 24 Hours: Intake & Output 08/06/17 08/07/17 08/07/17 22:59 06:59 14:59 Intake Total 240 385 Output Total 099 801 5443 Balance 90 185 -1200 Lab Results Last 24 Hours: Laboratory Results - last 24 hr 08/06/17 08/06/17 08/06/17 Range/Units 17:25 17:25 20:18 WBC 17.3 H (5.0-10.0) 10^3/uL RBC 3.47 L (4.2-5.4) 10^6/uL Hgb 10.9 L (12.0-16.0) g/dL Hct 31.3 L (37.0-47.0) % MCV 90.2 D (80-100) fL MCH 31.4 (27.0-34.0) pg MCHC 34.8 (33.0-35.0) g/dL Plt Count 365 (150-450) 10^3/uL Neut % (Auto) 80.5 H (42.2-75.2) % Lymph % (Auto) 6.0 L (20.5-50.1) % [place] % (Auto) 12.8 H (2-8) % Eos % (Auto) 0.2 L (1.0-3.0) % Baso % (Auto) 0.5 (0.0-1.0) % Add Manual Diff Neutrophils % (Manual) 67 (42-75) % Band Neutrophils % 10 % Lymphocytes % (Manual) 13 L (20-50) % Monocytes % (Manual) 7 (2-8) % Eosinophils % (Manual) 1 (1-3) % Metamyelocytes % 2 Sodium 136 (135-145) mmol/L Potassium 3.4 L (3.6-5.0) mmol/L Chloride 97 L (101-111) mmol/L Carbon Dioxide 29.0 (21.0-31.0) mmol/L Anion Gap 13.4 BUN 23 H (7-18) mg/dL Creatinine 0.7 (0.6-1.3) mg/dL Est Cr Clr Drug Dosing 49.57 mL/min Estimated GFR (MDRD) > 60 BUN/Creatinine Ratio 32.85 Glucose 158 H (74-105) mg/dL POC Glucose (83-110) mg/dl Lactic Acid 1.3 (0.5-2.2) mmol/L Calcium 8.9 (8.4-10.2) mg/dl Total Bilirubin 1.2 H (0.2-1.0) mg/dL AST 19 (10-42) IU/L ALT 15 (10-60) IU/L Alkaline Phosphatase 97 (42-121) IU/L Troponin I 0.02 (0.00-0.02) ng/ml B-Natriuretic Peptide 583 H (0-100) pg/ml Total Protein 6.7 (6.7-8.2) g/dl Albumin 2.8 L (3.2-5.5) g/dl Globulin 3.9 Albumin/Globulin Ratio 0.72 08/06/17 08/06/17 08/07/17 Range/Units 22:17 23:50 03:52 WBC 20.3 H (5.0-10.0) 10^3/uL RBC 3.24 L (4.2-5.4) 10^6/uL Hgb 9.6 L (12.0-16.0) g/dL Hct 29.0 L (37.0-47.0) % MCV 89.5 (80-100) fL MCH 29.6 (27.0-34.0) pg MCHC 33.1 (33.0-35.0) g/dL Plt Count 357 (150-450) 10^3/uL Neut % (Auto) 94.4 H (42.2-75.2) % Lymph % (Auto) 1.9 L (20.5-50.1) % [place] % (Auto) 3.2 (2-8) % Eos % (Auto) 0.0 L (1.0-3.0) % Baso % (Auto) 0.5 (0.0-1.0) % Add Manual Diff Yes Neutrophils % (Manual) 94 H (42-75) % Band Neutrophils % % Lymphocytes % (Manual) 4 L (20-50) % Monocytes % (Manual) 2 (2-8) % Eosinophils % (Manual) (1-3) % Metamyelocytes % Sodium (135-145) mmol/L Potassium (3.6-5.0) mmol/L Chloride (101-111) mmol/L Carbon Dioxide (21.0-31.0) mmol/L Anion Gap BUN (7-18) mg/dL Creatinine (0.6-1.3) mg/dL Est Cr Clr Drug Dosing mL/min Estimated GFR (MDRD) BUN/Creatinine Ratio Glucose (74-105) mg/dL POC Glucose 259 H (83-110) mg/dl Lactic Acid 1.3 (0.5-2.2) mmol/L Calcium (8.4-10.2) mg/dl Total Bilirubin (0.2-1.0) mg/dL AST (10-42) IU/L ALT (10-60) IU/L Alkaline Phosphatase (42-121) IU/L Troponin I (0.00-0.02) ng/ml B-Natriuretic Peptide (0-100) pg/ml Total Protein (6.7-8.2) g/dl Albumin (3.2-5.5) g/dl Globulin Albumin/Globulin Ratio 08/07/17 08/07/17 08/07/17 Range/Units 03:52 03:52 08:02 WBC (5.0-10.0) 10^3/uL RBC (4.2-5.4) 10^6/uL Hgb (12.0-16.0) g/dL Hct (37.0-47.0) % MCV (80-100) fL MCH (27.0-34.0) pg MCHC (33.0-35.0) g/dL Plt Count (150-450) 10^3/uL Neut % (Auto) (42.2-75.2) % Lymph % (Auto) (20.5-50.1) % [place] % (Auto) (2-8) % Eos % (Auto) (1.0-3.0) % Baso % (Auto) (0.0-1.0) % Add Manual Diff Neutrophils % (Manual) (42-75) % Band Neutrophils % % Lymphocytes % (Manual) (20-50) % Monocytes % (Manual) (2-8) % Eosinophils % (Manual) (1-3) % Metamyelocytes % Sodium 137 (135-145) mmol/L Potassium 4.1 (3.6-5.0) mmol/L Chloride 100 L (101-111) mmol/L Carbon Dioxide 30.0 (21.0-31.0) mmol/L Anion Gap 11.1 BUN 20 H (7-18) mg/dL Creatinine 0.7 (0.6-1.3) mg/dL Est Cr Clr Drug Dosing 49.57 mL/min Estimated GFR (MDRD) > 60 BUN/Creatinine Ratio Glucose 237 H (74-105) mg/dL POC Glucose 233 H (83-110) mg/dl Lactic Acid 0.9 (0.5-2.2) mmol/L Calcium 8.6 (8.4-10.2) mg/dl Total Bilirubin (0.2-1.0) mg/dL AST (10-42) IU/L ALT (10-60) IU/L Alkaline Phosphatase (42-121) IU/L Troponin I (0.00-0.02) ng/ml B-Natriuretic Peptide (0-100) pg/ml Total Protein (6.7-8.2) g/dl Albumin (3.2-5.5) g/dl Globulin Albumin/Globulin Ratio 04/23/18 Range/Units 11:22 WBC (5.0-10.0) 10^3/uL RBC (4.2-5.4) 10^6/uL Hgb (12.0-16.0) g/dL Hct (37.0-47.0) % MCV (80-100) fL MCH (27.0-34.0) pg MCHC (33.0-35.0) g/dL Plt Count (150-450) 10^3/uL Neut % (Auto) (42.2-75.2) % Lymph % (Auto) (20.5-50.1) % [place] % (Auto) (2-8) % Eos % (Auto) (1.0-3.0) % Baso % (Auto) (0.0-1.0) % Add Manual Diff Neutrophils % (Manual) (42-75) % Band Neutrophils % % Lymphocytes % (Manual) (20-50) % Monocytes % (Manual) (2-8) % Eosinophils % (Manual) (1-3) % Metamyelocytes % Sodium (135-145) mmol/L Potassium (3.6-5.0) mmol/L Chloride (101-111) mmol/L Carbon Dioxide (21.0-31.0) mmol/L Anion Gap BUN (7-18) mg/dL Creatinine (0.6-1.3) mg/dL Est Cr Clr Drug Dosing mL/min Estimated GFR (MDRD) BUN/Creatinine Ratio Glucose (74-105) mg/dL POC Glucose 278 H (83-110) mg/dl Lactic Acid (0.5-2.2) mmol/L Calcium (8.4-10.2) mg/dl Total Bilirubin (0.2-1.0) mg/dL AST (10-42) IU/L ALT (10-60) IU/L Alkaline Phosphatase (42-121) IU/L Troponin I (0.00-0.02) ng/ml B-Natriuretic Peptide (0-100) pg/ml Total Protein (6.7-8.2) g/dl Albumin (3.2-5.5) g/dl Globulin Albumin/Globulin Ratio Glenn Results Last 24 Hours: Microbiology 08/06/17 20:18 Aerobic Blood Culture - Preliminary Blood - Venous Anaerobic Blood Culture - Preliminary 08/07/17 10:30 Gram Stain - Final Sputum - Expectorated 08/06/17 20:25 Anaerobic Blood Culture - Final Blood - Venous - Lab Draw Med Orders - Current: Current Medications Acetaminophen (Tylenol) 650 mg PO Q6H PRN PRN Reason: Pain Albuterol/Ipratropium (Duoneb 3.0-0.5 Mg/3 Ml) 3 ml NEB Q8HRRT [facility] Last Admin: 08/06/17 22:24 Dose: 3 ml Amlodipine Besylate (Norvasc) 5 mg PO DAILY [facility] Last Admin: 08/07/17 09:46 Dose: 5 mg Budesonide (Pulmicort) 0.5 mg NEB BIDRT [facility] Duloxetine HCl (Cymbalta) 30 mg PO DAILY [facility] Last Admin: 08/07/17 09:46 Dose: 30 mg Furosemide (Lasix) 20 mg IVPUSH BID [facility] Last Admin: 08/07/17 09:50 Dose: 20 mg Heparin Sodium (Porcine) (Heparin Sodium) 5,000 units SUBCUT Q8HR [facility] Last Admin: 08/07/17 05:47 Dose: Not Given Levofloxacin/Dextrose 750 mg/ (Premix) 150 mls @ 100 mls/hr IV Q24H [facility] Last Admin: 08/06/17 20:39 Dose: 100 mls/hr Vancomycin HCl 0.75 gm/ Sodium (Chloride) 250 mls @ 166.667 mls/hr IV Q24H [facility] Last Admin: 08/06/17 22:23 Dose: 100 mls/hr Insulin Aspart (Novolog) 0 unit SUBCUT TIDAC [facility]; Protocol Last Admin: 08/07/17 09:43 Dose: 4 units Ipratropium [place] (Atrovent) 0.5 mg NEB Q4H PRN PRN Reason: sob Lidocaine (Lidoderm 5%) 700 mg TOP Q24H [facility] Loratadine (Claritin) 10 mg PO DAILY [facility] Methylprednisolone Sodium Succinate (Solu-Medrol) 40 mg IVPUSH Q8H [facility] Last Admin: 08/07/17 03:54 Dose: 40 mg Miscellaneous Information (Remove Patch) 1 ea TRDERM BEDTIME [facility] Morphine Sulfate (Morphine 10 Mg/0.5 Ml Oral Syringe) 2.5 mg SL TID [facility] Last Admin: 08/07/17 09:51 Dose: 2.5 mg Multivitamins/Minerals (I-Juan Pablo) 1 each PO DAILY [facility] Last Admin: 08/07/17 09:45 Dose: 1 each Ondansetron HCl (Zofran Odt) 4 mg PO Q6H PRN PRN Reason: nausea, able to take PO Potassium Chloride (Klor-Con 10) 20 meq PO WITHBREAKFAST [facility] Last Admin: 08/07/17 09:44 Dose: 20 meq Sodium Chloride (Saline Flush) 10 ml FLUSH ASDIRECTED PRN PRN Reason: Keep Vein Open Last Admin: 08/06/17 18:03 Dose: 10 ml Sodium Chloride (Saline Flush) 10 ml FLUSH ASDIRECTED PRN PRN Reason: Keep Vein Open Vancomycin HCl (Pharmacy To Dose - Vancomycin) 1 dose .XX ASDIRECTED [facility] Zolpidem Tartrate (Ambien) 5 mg PO BEDTIME PRN PRN Reason: Sleep Last Admin: 08/06/17 22:24 Dose: 5 mg Discontinued Medications Acetaminophen (Tylenol) 650 mg PO NOW ONE Stop: 08/06/17 18:50 Last Admin: 08/06/17 18:55 Dose: 650 mg Albuterol/Ipratropium (Duoneb 3.0-0.5 Mg/3 Ml) 3 ml NEB ONETIME ONE Stop: 08/06/17 17:03 Last Admin: 08/06/17 17:12 Dose: 3 ml Calcium Carbonate (Calcium Carbonate/Vitamin D 1250 Mg-200 Unit) 1 tab PO DAILY [facility] Lidocaine (Lidoderm 5%) 700 mg TOP Q24H [facility] Last Admin: 08/07/17 09:43 Dose: 700 mg Miscellaneous Information (Remove Patch) 1 ea TRDERM DAILY@1930 [facility] Potassium Chloride (Klor-Con 10) 40 meq PO ONETIME ONE Stop: 08/06/17 19:59 Last Admin: 08/06/17 20:41 Dose: 40 meq - Exam Quality Assessment: Supplemental Oxygen General: Alert, Oriented Neck: Supple Lungs: Decreased Breath Sounds, Rhonchi. No: Wheezing Cardiovascular: Regular Rate, Regular Rhythm GI/Abdominal Exam: Normal Bowel Sounds, Soft, Non-Tender Extremities: No Pedal Edema Skin: Warm, Dry Neurological: No New Focal Deficit Psy/Mental Status: Alert, Normal Affect, Normal Mood - Problem List Review Problem List Initiated/Reviewed/Updated: Yes - My Orders Last 24 Hours: My Active Orders 08/06/17 19:41 Blood Culture x2 Reflex Set [OM.PC] Stat 08/06/17 19:44 RT Aerosol Therapy [RC] ASDIRECTED 08/06/17 19:45 RT Post Treatment Assessment [RC] Click to Edit RT Pre-Treatment Assessment [RC] Click to Edit Ipratropium [Atrovent] 0.5 mg NEB Q4H PRN Vancomycin Pharmacy to Dose [Pharmacy to Dose - Vancomycin] 1 dose .XX ASDIRECTED 08/06/17 19:46 Telemetry Monitoring [Cardiac Monitoring] [RC] 08/06/17 19:48 Glucose [Blood Glucose Check, Bedside] [RC] QIDACANDBED 08/06/17 19:50 Acetaminophen [Tylenol] 650 mg PO Q6H PRN Zolpidem [Ambien] 5 mg PO BEDTIME PRN 08/06/17 20:00 Levofloxacin/Dextrose 5%-Water [Levaquin in D5W 750 MG/150 ML] 750 mg Premix Bag 1 bag IV Q24H Vancomycin 0.75 gm Sodium Chloride 0.9% [Normal Saline] 250 ml IV Q24H methylPREDNISolone Sod Succ [Solu-MEDROL] 40 mg IVPUSH Q8H 08/06/17 20:10 Patient Status [ADT] Routine Oxygen Therapy [RC] PRN Up With Assistance [RC] ASDIRECTED VTE/DVT Education [RC] PER UNIT ROUTINE Vital Signs [RC] 04,08,12,16,20,00 OT Evaluation and Treatment [CONS] Routine PT Evaluation and Treatment [CONS] Routine Ondansetron [Zofran ODT] 4 mg PO Q6H PRN Sodium Chloride 0.9% [Saline Flush] 10 ml FLUSH ASDIRECTED PRN Saline Lock Insert [OM.PC] Routine Resuscitation Status Routine 08/06/17 20:11 Antiembolic Hose [OM.PC] Per Unit Routine 08/06/17 20:18 CULTURE BLOOD [BC] Stat 08/06/17 20:25 CULTURE BLOOD [BC] Stat 08/06/17 21:00 Furosemide [Lasix] 20 mg IVPUSH BID Morphine [Morphine 10 MG/0.5 ML Oral Syringe] 2.5 mg SL TID 08/06/17 22:00 Heparin Sodium 5,000 units SUBCUT Q8HR 08/06/17 23:00 Albuterol/Ipratropium [DuoNeb 3.0-0.5 MG/3 ML] 3 ml NEB Q8HRRT 08/07/17 07:00 Budesonide [Pulmicort] 0.5 mg NEB BIDRT 08/07/17 08:00 Insulin Aspart [NovoLOG] See Protocol SUBCUT TIDAC Potassium Chloride [Klor-Con 10] 20 meq PO WITHBREAKFAST 08/07/17 09:00 DULoxetine [Cymbalta] 30 mg PO DAILY Lidocaine 5% [Lidoderm 5%] 700 mg TOP Q24H Loratadine [Claritin] 10 mg PO DAILY Lutein/Minerals/Vit A,C & E [I-Juan Pablo] 1 each PO DAILY amLODIPine [Norvasc] 5 mg PO DAILY 08/07/17 10:30 CULTURE SPUTUM + SMEAR [RM] Routine 08/07/17 12:36 Dietary Supplements [RC] TIDMEALS 08/07/17 12:37 OCCUPATIONAL THERAPIST Eval and Treat [OCCUPATIONAL THERAPIST Evaluation and Treatment] [CONS] Routine 08/07/17 21:00 Remove Patch 1 ea TRDERM BEDTIME - Plan Plan:: The patient is a 87-year-old lady with a history of severe COPD, 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 She has a history of anxiety, hypertension. The patient was recently hospitalized after a fall and left rib cage trauma. Subsequently discharged to longterm. She did well for a few days but then a few days prior to this admission she was noted to have increasing cough, low-grade temperature, increasing shortness of breath, tachycardia. She was brought into the emergency room. Family was concerned that she is chronically anxious and that is driving her shortness of breath worse. There was no apparent chest pain other than the traumatic event, no complains of palpitation, no operative pain, no diarrhea. No significant leg swelling lately. #1 acute on chronic hypoxemic respiratory failure This is likely secondary to a combination of severe COPD with exacerbation, elevated left hemidiaphragm, possible small left effusion, possible bronchitis or pneumonia. Well supplement oxygen as needed #2 acute COPD exacerbation Will use Pulmicort, scheduled DuoNeb, Atrovent as needed. Well use low-dose morphine to help with dyspnea Hold formoterol while on scheduled DuoNeb Started Solu-Medrol and taper it later #3 possible pneumonia, bronchitis with bacteremia There is leukocytosis, low-grade temperature. The patient is from a longterm, concern for gram-negative organisms, healthcare related to infection. sputum culture: Pending Blood cultures.: Gram-positive cocci noted Started the patient on levofloxacin and vancomycin. #4 sepsis with respiratory infection, gram-positive bacteremia Presented with tachycardia, leukocytosis, recent low-grade fever, Concern for respiratory infection Negative lactic acid levels Treat the infection, COPD #5 tachycardia Remained in sinus rhythm This is likely due to the respiratory status, nebulizers. Well monitor on telemetry. Improve respiratory status. For now hold off on rate control agents unless becoming more tachycardic. #6 small left-sided effusion There is no significant lower extremity edema, BNP is elevated but at the age of 87 that is somewhat expected. An acute CHF might have contributed to the shortness of breath Continue diuretics. Replace potassium as needed and will follow daily. #7 anxiety Will continue Cymbalta. Use low-dose morphine for helping with respiratory status. #8 recent fall with left sided chest wall trauma Will use Lidoderm patch, Tylenol, low-dose morphine. #9 hyperglycemia noted No history of diabetes Steroids are likely contributing Will follow blood sugars and use supplemental insulin #10 post status was discussed with the patient and family. Patient elected full CODE STATUS. We will have PT and OT worked with the patient to maintain strength Will have swallow evaluation Discussed with family at bedside
[2017-08-07] MEDS: Lidocaine 5% 700 MG Patch TOP SCH (12:44)
[2017-08-07] MEDS: Loratadine 10 MG Tab PO SCH (12:54)
[2017-08-07] MEDS: Sodium Chloride 0.9% 10 ML Syringe FLUSH PRN ×4 (20:25→22:08)
[2017-08-07] MEDS: Levofloxacin/Dextrose 5%-Water 750 MG in Premix Bag 1 BAG IV SCH (20:35)
[2017-08-07] MEDS: Zolpidem 5 MG Tab PO PRN (22:52)
[2017-08-08] MEDS: Sodium Chloride 0.9% 10 ML Syringe FLUSH PRN ×4 (00:01→19:50)
[2017-08-08] MEDS: methylPREDNISolone Sodium Succinate 40 MG/1 ML SDV IVPUSH SCH (04:26)
[2017-08-08] MEDS: Heparin Sodium 5,000 Units/ML Vial SUBCUT SCH ×3 (06:26→22:31)
[2017-08-08] MEDS: Albuterol/Ipratropium 3.0-0.5 MG/3 ML Neb Soln NEB SCH ×3 (07:52→23:33)
[2017-08-08] MEDS: Budesonide 0.5 MG/2 ML Neb Susp NEB SCH ×2 (07:52→18:51)
[2017-08-08] MEDS: Potassium Chloride 10 MEQ Tab.ER PO SCH (08:10)
[2017-08-08] MEDS: Loratadine 10 MG Tab PO SCH (08:14)
[2017-08-08] MEDS: DULoxetine 30 MG Cap PO SCH (08:14)
[2017-08-08] MEDS: Lutein/Minerals/Vit A,C & E Tab PO SCH (08:14)
[2017-08-08] MEDS: Furosemide 20 MG/2 ML VIAL IVPUSH SCH (08:15)
[2017-08-08] MEDS: Lidocaine 5% 700 MG Patch TOP SCH (08:15)
[2017-08-08] MEDS: Morphine 10 MG/0.5 ML Oral Syringe SL SCH ×3 (08:16→20:35)
[2017-08-08] MEDS: Insulin Aspart 100 Units/ML 3 ML Pen SUBCUT SCH ×5 (08:18→23:42)
[2017-08-08] MEDS: amLODIPine 5 MG Tab PO SCH (08:18)
--- NOTE | 2017-08-08 11:19 | PCM.PN ---
- General Info Date of Service: 08/08/17 Admission Dx/Problem (Free Text): Admission Diagnosis/Problem Admission Diagnosis/Problem Shortness of breath Subjective Update: Still episodes of shortness of breath associated with anxiety. Had swallow evaluation that did not recommend changes in current diet. She still has cough and productive yellow sputum. No chills. Has been monitored on telemetry. No significant arrhythmia other than PACs PVCs on telemetry. No associated chest pain. - Review of Systems General: Reports: Weakness. Denies: Fever Pulmonary: Reports: Shortness of Breath Cardiovascular: Denies: Chest Pain Gastrointestinal: Denies: Abdominal Pain Neurological: Denies: Confusion - Patient Data Vitals - Most Recent: Last Vital Signs Temp 36.9 C 08/08/17 10:58 Pulse 64 08/08/17 10:58 Resp 20 08/08/17 10:58 BP 153/65 H 08/08/17 10:58 Pulse Ox 95 08/08/17 10:58 Weight - Most Recent: 54.068 kg I&O - Last 24 Hours: Intake & Output 08/07/17 08/08/17 08/08/17 22:59 06:59 14:59 Intake Total 141 646 240 Output Total 600 Balance 141 46 240 Lab Results Last 24 Hours: Laboratory Results - last 24 hr 08/07/17 08/07/17 08/07/17 Range/Units 11:22 16:45 20:54 WBC (5.0-10.0) 10^3/uL RBC (4.2-5.4) 10^6/uL Hgb (12.0-16.0) g/dL Hct (37.0-47.0) % MCV (80-100) fL MCH (27.0-34.0) pg MCHC (33.0-35.0) g/dL Plt Count (150-450) 10^3/uL Add Manual Diff Neutrophils % (Manual) (42-75) % Band Neutrophils % % Lymphocytes % (Manual) (20-50) % Monocytes % (Manual) (2-8) % Sodium (135-145) mmol/L Potassium (3.6-5.0) mmol/L Chloride (101-111) mmol/L Carbon Dioxide (21.0-31.0) mmol/L Anion Gap BUN (7-18) mg/dL Creatinine (0.6-1.3) mg/dL Est Cr Clr Drug Dosing mL/min Estimated GFR (MDRD) Glucose (74-105) mg/dL POC Glucose 278 H 231 H 411 H* (83-110) mg/dl Calcium (8.4-10.2) mg/dl 08/08/17 08/08/17 08/08/17 Range/Units 06:25 06:25 08:00 WBC 24.1 H (5.0-10.0) 10^3/uL RBC 3.03 L (4.2-5.4) 10^6/uL Hgb 9.7 L (12.0-16.0) g/dL Hct 28.5 L (37.0-47.0) % MCV 94.1 D (80-100) fL MCH 32.0 (27.0-34.0) pg MCHC 34.0 (33.0-35.0) g/dL Plt Count 440 D (150-450) 10^3/uL Add Manual Diff Yes Neutrophils % (Manual) 88 H (42-75) % Band Neutrophils % 1 % Lymphocytes % (Manual) 6 L (20-50) % Monocytes % (Manual) 5 (2-8) % Sodium 141 (135-145) mmol/L Potassium 4.5 (3.6-5.0) mmol/L Chloride 102 (101-111) mmol/L Carbon Dioxide 30.0 (21.0-31.0) mmol/L Anion Gap 13.5 BUN 37 H (7-18) mg/dL Creatinine 0.9 (0.6-1.3) mg/dL Est Cr Clr Drug Dosing 38.30 mL/min Estimated GFR (MDRD) 59 Glucose 230 H (74-105) mg/dL POC Glucose 301 H (83-110) mg/dl Calcium 9.0 (8.4-10.2) mg/dl Glenn Results Last 24 Hours: Microbiology 08/07/17 10:30 Gram Stain - Final Sputum - Expectorated Sputum Culture - Preliminary 08/06/17 20:25 Aerobic Blood Culture - Preliminary Blood - Venous - Lab Draw NO GROWTH AFTER 1 DAY Anaerobic Blood Culture - Final 08/06/17 20:18 Aerobic Blood Culture - Preliminary Blood - Venous Anaerobic Blood Culture - Preliminary Med Orders - Current: Current Medications Acetaminophen (Tylenol) 650 mg PO Q6H PRN PRN Reason: Pain Albuterol/Ipratropium (Duoneb 3.0-0.5 Mg/3 Ml) 3 ml NEB Q8HRRT [facility] Last Admin: 08/08/17 07:52 Dose: 3 ml Amlodipine Besylate (Norvasc) 5 mg PO DAILY [facility] Last Admin: 08/08/17 08:18 Dose: 5 mg Budesonide (Pulmicort) 0.5 mg NEB BIDRT [facility] Last Admin: 08/08/17 07:52 Dose: 0.5 mg Duloxetine HCl (Cymbalta) 30 mg PO DAILY [facility] Last Admin: 08/08/17 08:14 Dose: 30 mg Furosemide (Lasix) 20 mg PO DAILY [facility] Heparin Sodium (Porcine) (Heparin Sodium) 5,000 units SUBCUT Q8HR [facility] Last Admin: 08/08/17 06:26 Dose: 5,000 units Levofloxacin/Dextrose 750 mg/ (Premix) 150 mls @ 100 mls/hr IV Q24H [facility] Last Infusion: 08/07/17 22:05 Dose: Infused Vancomycin HCl 0.75 gm/ Sodium (Chloride) 250 mls @ 166.667 mls/hr IV Q24H [facility] Last Admin: 08/07/17 22:19 Dose: 166.667 mls/hr Insulin Aspart (Novolog) 0 unit SUBCUT TIDAC [facility]; Protocol Last Admin: 08/08/17 08:18 Dose: 8 units Ipratropium [place] (Atrovent) 0.5 mg NEB Q4H PRN PRN Reason: sob Lidocaine (Lidoderm 5%) 700 mg TOP Q24H [facility] Last Admin: 08/08/17 08:15 Dose: 700 mg Loratadine (Claritin) 10 mg PO DAILY [facility] Last Admin: 08/08/17 08:14 Dose: 10 mg Miscellaneous Information (Remove Patch) 1 ea TRDERM BEDTIME [facility] Last Admin: 08/07/17 22:26 Dose: Not Given Morphine Sulfate (Morphine 10 Mg/0.5 Ml Oral Syringe) 2.5 mg SL TID [facility] Last Admin: 08/08/17 08:16 Dose: 2.5 mg Multivitamins/Minerals (I-Juan Pablo) 1 each PO DAILY [facility] Last Admin: 08/08/17 08:14 Dose: 1 each Ondansetron HCl (Zofran Odt) 4 mg PO Q6H PRN PRN Reason: nausea, able to take PO Potassium Chloride (Klor-Con 10) 20 meq PO WITHBREAKFAST [facility] Last Admin: 08/08/17 08:10 Dose: 20 meq Prednisone (Prednisone) 40 mg PO WITHBREAKFAST [facility] Sodium Chloride (Saline Flush) 10 ml FLUSH ASDIRECTED PRN PRN Reason: Keep Vein Open Last Admin: 08/08/17 04:32 Dose: 10 ml Sodium Chloride (Saline Flush) 10 ml FLUSH ASDIRECTED PRN PRN Reason: Keep Vein Open Vancomycin HCl (Pharmacy To Dose - Vancomycin) 1 dose .XX ASDIRECTED [facility] Zolpidem Tartrate (Ambien) 5 mg PO BEDTIME PRN PRN Reason: Sleep Last Admin: 08/07/17 22:52 Dose: 5 mg Discontinued Medications Acetaminophen (Tylenol) 650 mg PO NOW ONE Stop: 08/06/17 18:50 Last Admin: 08/06/17 18:55 Dose: 650 mg Albuterol/Ipratropium (Duoneb 3.0-0.5 Mg/3 Ml) 3 ml NEB ONETIME ONE Stop: 08/06/17 17:03 Last Admin: 08/06/17 17:12 Dose: 3 ml Calcium Carbonate (Calcium Carbonate/Vitamin D 1250 Mg-200 Unit) 1 tab PO DAILY [facility] Last Admin: 08/07/17 12:43 Dose: Not Given Furosemide (Lasix) 20 mg IVPUSH BID [facility] Last Admin: 08/08/17 08:15 Dose: 20 mg Lidocaine (Lidoderm 5%) 700 mg TOP Q24H [facility] Last Admin: 08/07/17 09:43 Dose: 700 mg Methylprednisolone Sodium Succinate (Solu-Medrol) 40 mg IVPUSH Q8H [facility] Last Admin: 08/08/17 04:26 Dose: 40 mg Methylprednisolone Sodium Succinate (Solu-Medrol) 40 mg IVPUSH BID [facility] Miscellaneous Information (Remove Patch) 1 ea TRDERM DAILY@1930 [facility] Potassium Chloride (Klor-Con 10) 40 meq PO ONETIME ONE Stop: 08/06/17 19:59 Last Admin: 08/06/17 20:41 Dose: 40 meq - Exam General: Alert, Oriented Neck: Supple Lungs: Normal Respiratory Effort, Decreased Breath Sounds. No: Wheezing Cardiovascular: Regular Rate, Regular Rhythm GI/Abdominal Exam: Normal Bowel Sounds, Soft, Non-Tender Extremities: No Pedal Edema Skin: Warm, Dry Neurological: No New Focal Deficit Psy/Mental Status: Alert, Normal Affect, Normal Mood - Problem List Review Problem List Initiated/Reviewed/Updated: Yes - My Orders Last 24 Hours: My Active Orders 08/07/17 10:30 CULTURE SPUTUM + SMEAR [RM] Routine 08/07/17 12:36 Dietary Supplements [RC] TIDMEALS 08/07/17 16:05 OT Evaluation and Treatment [CONS] Routine 08/07/17 21:00 Remove Patch 1 ea TRDERM BEDTIME 08/08/17 11:12 GLUCOSE,POC [POC] Routine 08/08/17 11:13 CULTURE BLOOD [BC] Stat CULTURE BLOOD [BC] Stat Blood Culture x2 Reflex Set [OM.PC] Stat 08/09/17 05:15 BASIC METABOLIC PANEL,BMP [CHEM] AM CBC WITH AUTO DIFF [HEME] AM 08/09/17 08:00 predniSONE 40 mg PO WITHBREAKFAST 08/09/17 09:00 Furosemide [Lasix] 20 mg PO DAILY - Plan Plan:: The patient is a 87-year-old lady with a history of severe COPD, 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 She has a history of anxiety, hypertension. The patient was recently hospitalized after a fall and left rib cage trauma. Subsequently discharged to halfway. She did well for a few days but then a few days prior to this admission she was noted to have increasing cough, low-grade temperature, increasing shortness of breath, tachycardia. She was brought into the emergency room. Family was concerned that she is chronically anxious and that is driving her shortness of breath worse. There was no apparent chest pain other than the traumatic event, no complains of palpitation, no operative pain, no diarrhea. No significant leg swelling lately. #1 acute on chronic hypoxemic respiratory failure This is likely secondary to a combination of severe COPD with exacerbation, elevated left hemidiaphragm, possible small left effusion, possible bronchitis or pneumonia. Well supplement oxygen as needed #2 acute COPD exacerbation Will use Pulmicort, scheduled DuoNeb, Atrovent as needed. Well use low-dose morphine to help with dyspnea Hold formoterol while on scheduled DuoNeb Started Solu-Medrol and will change it to oral prednisone today #3 possible pneumonia, bronchitis with bacteremia There is leukocytosis, low-grade temperature. The patient is from a halfway, concern for gram-negative organisms, healthcare related to infection. sputum culture: Presumptive Staphylococcus Blood cultures on admission.: Gram-positive cocci noted We will repeat blood culture today Started the patient on levofloxacin and vancomycin. #4 sepsis with respiratory infection, gram-positive bacteremia Presented with tachycardia, leukocytosis, recent low-grade fever, Concern for respiratory infection Negative lactic acid levels Treat the infection, COPD #5 tachycardia Remained in sinus rhythm This is likely due to the respiratory status, nebulizers, steroid. Well monitor on telemetry. Improve respiratory status. For now hold off on rate control agents unless becoming more tachycardic. #6 small left-sided effusion There is no significant lower extremity edema, BNP is elevated but at the age of 87 that is somewhat expected. An acute CHF might have contributed to the shortness of breath Continue diuretics but cut back to once a day oral dosing.. Replace potassium as needed and will follow daily. #7 anxiety Will continue Cymbalta. Use low-dose morphine for helping with respiratory status. #8 recent fall with left sided chest wall trauma Will use Lidoderm patch, Tylenol, low-dose morphine. #9 hyperglycemia noted No history of diabetes Steroids are likely contributing We'll add Lantus at night. Will follow blood sugars and use supplemental insulin #10 post status was discussed with the patient and family. Patient elected full CODE STATUS. We will have PT and OT worked with the patient to maintain strength Discussed with family at bedside
[2017-08-08] MEDS ORDERED: diphenhydrAMINE 25 MG Tab PO PRN (11:25)
--- NOTE | 2017-08-08 13:46 | EKG ---
08/06/2017- ONUR JOHNSON - FINDINGS: EKG, per my reading, shows sinus tachycardia with PACs and PVCs. [facility] /[id number]
[2017-08-08] MEDS ORDERED: Insulin Detemir 100 Units/ML 3 ML Pen SUBCUT SCH (21:00)
[2017-08-08] MEDS ORDERED: methylPREDNISolone Sodium Succinate 40 MG/1 ML SDV IVPUSH SCH (21:00)
[2017-08-08] MEDS ORDERED: Morphine 2 MG/ML Syringe IVPUSH ONE (22:00)
[2017-08-08] MEDS ORDERED: Levofloxacin/Dextrose 5%-Water 750 MG in Premix Bag 1 BAG IV SCH (22:00)
[2017-08-08] MEDS ORDERED: Morphine 2 MG/ML Syringe IVPUSH PRN (23:38)
[2017-08-09] MEDS ORDERED: LORazepam 2 MG/ML Syringe IVPUSH PRN (00:17)
[2017-08-09] MEDS ORDERED: Acetaminophen 650 MG Supp RECTAL PRN (02:20)
[2017-08-09] MEDS: Sodium Chloride 0.9% 10 ML Syringe FLUSH PRN ×3 (02:34→06:55)
[2017-08-09] MEDS: Morphine 2 MG/ML Syringe IVPUSH PRN ×7 (02:34→12:10)
[2017-08-09] MEDS: Budesonide 0.5 MG/2 ML Neb Susp NEB SCH (07:58)
[2017-08-09] MEDS: Albuterol/Ipratropium 3.0-0.5 MG/3 ML Neb Soln NEB SCH (07:58)
[2017-08-09] MEDS ORDERED: predniSONE 20 MG Tab PO SCH (08:00)
[2017-08-09] MEDS: Insulin Aspart 100 Units/ML 3 ML Pen SUBCUT SCH ×2 (08:13→11:00)
[2017-08-09] MEDS ORDERED: Furosemide 20 MG Tab PO SCH (09:00)
[2017-08-09] MEDS: Loratadine 10 MG Tab PO SCH (10:43)
[2017-08-09] MEDS: Lidocaine 5% 700 MG Patch TOP SCH (10:43)
[2017-08-09] MEDS: DULoxetine 30 MG Cap PO SCH (10:43)
[2017-08-09] MEDS: Lutein/Minerals/Vit A,C & E Tab PO SCH (10:43)
[2017-08-09] MEDS: Morphine 10 MG/0.5 ML Oral Syringe SL SCH (10:44)
--- NOTE | 2017-08-09 11:07 | PCM.PN ---
- General Info Date of Service: 08/09/17 Admission Dx/Problem (Free Text): Admission Diagnosis/Problem Admission Diagnosis/Problem Shortness of breath Subjective Update: Patient became increasingly short of breath. Family decided to change her to comfort measures. This morning the patient is still short of breath and unresponsive. Appears to have significant amount of secretions in her throat. - Review of Systems General: Reports: Weakness (Limited due to patient's level of consciousness) Pulmonary: Reports: Shortness of Breath - Patient Data Vitals - Most Recent: Last Vital Signs Temp 37.5 C 08/09/17 02:41 Pulse 122 H 08/09/17 08:00 Resp 20 08/09/17 02:30 BP 131/85 08/09/17 00:00 Pulse Ox 89 L 08/09/17 02:30 Weight - Most Recent: 54.068 kg I&O - Last 24 Hours: Intake & Output 08/08/17 08/09/17 08/09/17 22:59 06:59 14:59 Intake Total 565 150 Balance 565 150 Lab Results Last 24 Hours: Laboratory Results - last 24 hr 08/08/17 08/08/17 08/08/17 Range/Units 11:12 16:44 20:56 POC Glucose 234 H 179 H 232 H (83-110) mg/dl Glenn Results Last 24 Hours: Microbiology 08/06/17 20:18 Aerobic Blood Culture - Final Blood - Venous Viridans Streptococcus Anaerobic Blood Culture - Final 08/07/17 10:30 Gram Stain - Final Sputum - Expectorated Sputum Culture - Preliminary 08/06/17 20:25 Aerobic Blood Culture - Preliminary Blood - Venous - Lab Draw NO GROWTH AFTER 2 DAYS Anaerobic Blood Culture - Final Med Orders - Current: Current Medications Acetaminophen (Tylenol) 650 mg PO Q6H PRN PRN Reason: Pain Acetaminophen (Tylenol) 650 mg RECTAL Q6H PRN PRN Reason: Fever Last Admin: 08/09/17 02:41 Dose: 650 mg Albuterol/Ipratropium (Duoneb 3.0-0.5 Mg/3 Ml) 3 ml NEB Q8HRRT [facility] Last Admin: 08/09/17 07:58 Dose: Not Given Budesonide (Pulmicort) 0.5 mg NEB BIDRT [facility] Last Admin: 08/09/17 07:58 Dose: Not Given Diphenhydramine HCl (Benadryl) 25 mg PO BEDTIME PRN PRN Reason: for sleep Duloxetine HCl (Cymbalta) 30 mg PO DAILY [facility] Last Admin: 08/09/17 10:43 Dose: Not Given Furosemide (Lasix) 20 mg PO DAILY [facility] Last Admin: 08/09/17 10:43 Dose: Not Given Insulin Aspart (Novolog) 0 unit SUBCUT ACBED [facility]; Protocol Last Admin: 08/09/17 11:00 Dose: Not Given Insulin Detemir (Levemir) 10 unit SUBCUT BEDTIME [facility] Last Admin: 08/08/17 23:41 Dose: Not Given Ipratropium [place] (Atrovent) 0.5 mg NEB Q4H PRN PRN Reason: sob Last Admin: 08/08/17 21:28 Dose: 0.5 mg Lidocaine (Lidoderm 5%) 700 mg TOP Q24H [facility] Last Admin: 08/09/17 10:43 Dose: Not Given Loratadine (Claritin) 10 mg PO DAILY [facility] Last Admin: 08/09/17 10:43 Dose: Not Given Lorazepam (Ativan) 1 mg IVPUSH Q2H PRN PRN Reason: anxiety Miscellaneous Information (Remove Patch) 1 ea TRDERM BEDTIME [facility] Last Admin: 08/08/17 20:38 Dose: 1 ea Morphine Sulfate (Morphine 10 Mg/0.5 Ml Oral Syringe) 2.5 mg SL TID [facility] Last Admin: 08/09/17 10:44 Dose: Not Given Morphine Sulfate (Morphine) 2 mg IVPUSH Q1H PRN PRN Reason: Pain Last Admin: 08/09/17 10:04 Dose: 2 mg Multivitamins/Minerals (I-Juan Pablo) 1 each PO DAILY [facility] Last Admin: 08/09/17 10:43 Dose: Not Given Ondansetron HCl (Zofran Odt) 4 mg PO Q6H PRN PRN Reason: nausea, able to take PO Last Admin: 08/08/17 18:09 Dose: 4 mg Sodium Chloride (Saline Flush) 10 ml FLUSH ASDIRECTED PRN PRN Reason: Keep Vein Open Last Admin: 08/09/17 06:55 Dose: 10 ml Sodium Chloride (Saline Flush) 10 ml FLUSH ASDIRECTED PRN PRN Reason: Keep Vein Open Discontinued Medications Acetaminophen (Tylenol) 650 mg PO NOW ONE Stop: 08/06/17 18:50 Last Admin: 08/06/17 18:55 Dose: 650 mg Albuterol/Ipratropium (Duoneb 3.0-0.5 Mg/3 Ml) 3 ml NEB ONETIME ONE Stop: 08/06/17 17:03 Last Admin: 08/06/17 17:12 Dose: 3 ml Amlodipine Besylate (Norvasc) 5 mg PO DAILY [facility] Last Admin: 08/08/17 08:18 Dose: 5 mg Calcium Carbonate (Calcium Carbonate/Vitamin D 1250 Mg-200 Unit) 1 tab PO DAILY [facility] Last Admin: 08/07/17 12:43 Dose: Not Given Furosemide (Lasix) 20 mg IVPUSH BID [facility] Last Admin: 08/08/17 08:15 Dose: 20 mg Heparin Sodium (Porcine) (Heparin Sodium) 5,000 units SUBCUT Q8HR [facility] Last Admin: 08/08/17 22:31 Dose: 5,000 units Levofloxacin/Dextrose 750 mg/ (Premix) 150 mls @ 100 mls/hr IV Q24H [facility] Last Infusion: 08/07/17 22:05 Dose: Infused Vancomycin HCl 0.75 gm/ Sodium (Chloride) 250 mls @ 166.667 mls/hr IV Q24H [facility] Last Admin: 08/08/17 19:50 Dose: 166.667 mls/hr Levofloxacin/Dextrose 750 mg/ (Premix) 150 mls @ 100 mls/hr IV Q24H [facility] Last Infusion: 08/09/17 00:53 Dose: Infused Insulin Aspart (Novolog) 0 unit SUBCUT TIDAC [facility]; Protocol Last Admin: 08/08/17 14:59 Dose: Not Given Lidocaine (Lidoderm 5%) 700 mg TOP Q24H [facility] Last Admin: 08/07/17 09:43 Dose: 700 mg Methylprednisolone Sodium Succinate (Solu-Medrol) 40 mg IVPUSH Q8H [facility] Last Admin: 08/08/17 04:26 Dose: 40 mg Methylprednisolone Sodium Succinate (Solu-Medrol) 40 mg IVPUSH BID [facility] Miscellaneous Information (Remove Patch) 1 ea TRDERM DAILY@1930 [facility] Morphine Sulfate (Morphine) 2 mg IVPUSH ONETIME ONE Stop: 08/08/17 22:01 Last Admin: 08/08/17 22:19 Dose: 2 mg Morphine Sulfate (Morphine) 2 mg IVPUSH Q4H PRN PRN Reason: Pain Last Admin: 08/08/17 23:50 Dose: 2 mg Potassium Chloride (Klor-Con 10) 40 meq PO ONETIME ONE Stop: 08/06/17 19:59 Last Admin: 08/06/17 20:41 Dose: 40 meq Potassium Chloride (Klor-Con 10) 20 meq PO WITHBREAKFAST JESSICA Last Admin: 08/08/17 08:10 Dose: 20 meq Prednisone (Prednisone) 40 mg PO WITHBREAKFAST [facility] Vancomycin HCl (Pharmacy To Dose - Vancomycin) 1 dose .XX ASDIRECTED [facility] Zolpidem Tartrate (Ambien) 5 mg PO BEDTIME PRN PRN Reason: Sleep Last Admin: 08/07/17 22:52 Dose: 5 mg - Exam Quality Assessment: Supplemental Oxygen General: Lethargic, Obtunded Lungs: Decreased Breath Sounds, Rhonchi GI/Abdominal Exam: Soft, Non-Tender Extremities: Non-Tender - Problem List Review Problem List Initiated/Reviewed/Updated: Yes - My Orders Last 24 Hours: My Active Orders 08/09/17 00:12 Code Status [Resuscitation Status] Routine 08/09/17 00:17 LORazepam [Ativan] 1 mg IVPUSH Q2H PRN 08/09/17 02:16 Morphine 2 mg IVPUSH Q1H PRN 08/09/17 02:20 Acetaminophen [Tylenol] 650 mg RECTAL Q6H PRN - Plan Plan:: The patient is a 87-year-old lady with a history of severe COPD, 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 She has a history of anxiety, hypertension. The patient was recently hospitalized after a fall and left rib cage trauma. Subsequently discharged to [facility]. She did well for a few days but then a few days prior to this admission she was noted to have increasing cough, low-grade temperature, increasing shortness of breath, tachycardia. She was brought into the emergency room. Patient was readmitted with COPD exacerbation and suspected pneumonia. Blood cultures came back positive with Streptococcus viridans #1 acute on chronic hypoxemic respiratory failure This is likely secondary to a combination of severe COPD with exacerbation, elevated left hemidiaphragm, possible small left effusion, possible bronchitis or pneumonia. #2 acute COPD exacerbation #3 possible pneumonia, bronchitis with bacteremia There is leukocytosis, low-grade temperature. The patient is from a [facility], concern for gram-negative organisms, healthcare related to infection. sputum culture: #4 sepsis with respiratory infection, gram-positive bacteremia Presented with tachycardia, leukocytosis, recent low-grade fever, Concern for respiratory infection Negative lactic acid levels #5 tachycardia Remained in sinus rhythm #6 small left-sided effusion #7 anxiety #8 recent fall with left sided chest wall trauma Will use Lidoderm patch, Tylenol, low-dose morphine. Plan: The patient became increasingly short of breath and pulmonary responsive. I met with the family members and after several discussions, decided to proceed with comfort measures. We will initiate palliative care according to the wishes of the family. Intravenous morphine. Intravenous lorazepam. Start patient on scopolamine patch, and atropine Palliative care.
[2017-08-09] MEDS ORDERED: Scopolamine 1.5 MG Transdermal Patch TRDERM SCH (11:15)
[2017-08-09] MEDS ORDERED: Atropine 1% Ophth Soln 5 ML BOTTLE SL PRN (11:35)
== END 2017-08-09 12:20 | disposition expired | DRG 871 ==
LOC: DL.ED 16:51 → DL.MS 19:08 → UNDOADMIN 19:08 → DL.MS 20:10
PROVIDERS: ADMIT Internal Medicine; ATTEND Internal Medicine
DX: A40.8 Other streptococcal sepsis (principal); J96.21 Acute and chronic respiratory failure with hypoxia; J18.9 Pneumonia, unspecified organism; R07.81 Pleurodynia; J44.1 Chronic obstructive pulmonary disease with (acute) exacerbation; H33.20 Serous retinal detachment, unspecified eye; J44.0 Chronic obstructive pulmonary disease with (acute) lower respiratory infection; Z51.5 Encounter for palliative care; Z66 Do not resuscitate; I11.0 Hypertensive heart disease with heart failure; I50.9 Heart failure, unspecified; F41.9 Anxiety disorder, unspecified; S22.42XD Multiple fractures of ribs, left side, subsequent encounter for fracture with routine healing; W18.30XD Fall on same level, unspecified, subsequent encounter; E87.6 Hypokalemia; I49.1 Atrial premature depolarization; I49.3 Ventricular premature depolarization; R73.9 Hyperglycemia, unspecified; T38.0X5A Adverse effect of glucocorticoids and synthetic analogues, initial encounter; R06.02 Shortness of breath; K44.9 Diaphragmatic hernia without obstruction or gangrene; G89.29 Other chronic pain; M54.9 Dorsalgia, unspecified; N39.3 Stress incontinence (female) (male); M19.90 Unspecified osteoarthritis, unspecified site; M81.0 Age-related osteoporosis without current pathological fracture; F32.9 Major depressive disorder, single episode, unspecified; H54.7 Unspecified visual loss; Z90.710 Acquired absence of both cervix and uterus; Z79.899 Other long term (current) drug therapy; Z86.11 Personal history of tuberculosis; Z87.440 Personal history of urinary (tract) infections; Z87.891 Personal history of nicotine dependence; Z99.81 Dependence on supplemental oxygen; Z28.21 Immunization not carried out because of patient refusal
CPT/HCPCS: 36415; 71045; 80053; 83880; 84484; 85025; 87077; 93005; 93010; 94640; 99285; A9270; J7050; 80048; 82962; 83605; 87040; 87070; 87186; 87205; 92610-GN; 97110-GO; 97162-GP; 97166-GO; 97530-GO; J1644; J1815-GY; J1940; J1956; J2270; J2920; J3370